=== PATIENT | male | born 1950 | race Caucasian/White ===

== ENCOUNTER 2020-03-16 07:19 | Outpatient (REF) | payer MEDICARE, SELFPAY ==
[2020-03-16 07:58] LABS: MANUAL DIFF FLAG NO
[2020-03-16 07:59] LABS: Basophils Absolute Auto 0.1 X10*3/uL (0.0-0.2); Basophils Percent Auto 0.8 % (0-2); Eosinophils Absolute Auto 0.2 X10*3/uL (0.0-0.4); Eosinophils Percent Auto 3.1 % (0-4); Hematocrit 45.9 % (42-52); Hemoglobin 14.9 g/dl (14.0-18.0); Imm Gran Abs Auto 0.02 X10*3/uL (0.00-0.03); Imm Gran Pct Auto 0.3 % (0.0-0.4); Lymphocytes Absolute Auto 1.5 X10*3/uL (1.2-4.9); Lymphocytes Percent Auto 23.2 % (20-40); Mean Corpuscular HGB Conc 32.5 g/dl (31.0-36.0); Mean Corpuscular Hemoglobin 30.1 pg (27.0-33.0); Mean Corpuscular Volume 92.7 fL (80-98); Mean Platelet Volume 10.2 fL (9.4-12.4); Monocytes Absolute Auto 0.6 X10*3/uL (0.1-1.2); Monocytes Percent Auto 8.4 % (2-11); Neutrophils Absolute Auto 4.2 X10*3/uL (2.0-8.3); Neutrophils Percent Auto 64.2 % (45-73); Platelet Count 240 X10*3/uL (160-400); Red Blood Count 4.95 X10*6/uL (4.60-5.80); Red Cell Distribution Width 12.9 % (11.0-16.0); White Blood Count 6.5 X10*3/uL (4.8-10.8)
[2020-03-16 08:15] LABS: Glucose Urine UA NEG (NEG); Leukocyte Esterase Urine NEG (NEG); Nitrite Urine NEG (NEG); Specific Gravity - Urine >= 1.030 (1.005-1.025); Urine Blood TRACE (NEG); Urine Ketones NEG (NEG); Urine Protein NEG (NEG-TRACE)
[2020-03-16 08:23] LABS: Estimated Average Glucose 111 mg/dL; Hemoglobin A1c % 5.5 %
[2020-03-16 08:23] LABS: Appearance Urine CLEAR; Color Urine YELLOW
[2020-03-16 08:40] LABS: Mucus Urine 1+ /LPF; RBC Urine 0-2 /HPF (0); Squamous Epithelial Cell Urine TRACE /LPF; WBC Urine 0 /HPF (0-4)
[2020-03-16 08:47] LABS: Alanine Aminotransferase 24 U/L (0-40); Albumin Level 4.3 g/dL (3.5-5.0); Alkaline Phosphatase 60 U/L (39-117); Anion Gap 12 (12-20); Aspartate Amino Transferase 16 U/L (5-37); Bilirubin Total 0.5 mg/dL (0.0-1.0); Blood Urea Nitrogen 17 mg/dL (9-16); Calcium 9.2 mg/dL (8.4-10.2); Carbon Dioxide 30 mmol/L (22-29); Chloride 104 mmol/L (96-108); Cholesterol 153 mg/dL; Estimated Glomerular Filt Rate > 60; Glucose Fasting 106 mg/dL (60-99); HDL Cholesterol 46 mg/dL; LDL Cholesterol Calculated 75 mg/dl; Potassium 4.9 mmol/l (3.3-5.1); Sodium 141 mmol/L (135-145); Total Protein 7.3 g/dL (6.5-8.0); Triglycerides 164 mg/dL
[2020-03-16 08:50] LABS: Creatinine Urine 175.64 mg/dL; Microalbum/Creatinine Ratio Ur 7.9 ug/mg cr
[2020-03-16 09:10] LABS: Prostate Specific Antigen 2.01 ng/mL (<0.05-4.0)
[2020-03-16 09:27] LABS: Reflex LDLD? No
== END 2020-03-16 07:20 | disposition home or self-care (01) ==
LOC: HO.LAB 07:19
PROVIDERS: PCP Internal Medicine; Visit Provider Internal Medicine
DX: Z00.00 Encounter for general adult medical examination without abnormal findings (principal); E78.00 Pure hypercholesterolemia, unspecified; R73.09 Other abnormal glucose; I10 Essential (primary) hypertension
CPT/HCPCS: 36415; 80053; 80061; 81001; 81003; 82043; 83036; 84153; 85025

== ENCOUNTER 2020-08-18 10:36 | Outpatient (REF) | payer MEDICARE, SELFPAY ==
[2020-08-18 11:01] LABS: Estimated Average Glucose 108 mg/dL; Hemoglobin A1c % 5.4 %
[2020-08-18 12:25] LABS: Alanine Aminotransferase 26 U/L (0-40); Alkaline Phosphatase 58 U/L (39-117); Aspartate Amino Transferase 20 U/L (5-37); Bilirubin Direct 0.3 mg/dL (0.0-0.5); Bilirubin Total 0.7 mg/dL (0.0-1.0); Cholesterol 126 mg/dL; Glucose Fasting 102 mg/dL (60-99); HDL Cholesterol 39 mg/dL; LDL Cholesterol Calculated 67 mg/dl; Total Protein 6.8 g/dL (6.5-8.0); Triglycerides 103 mg/dL
[2020-08-18 13:23] LABS: Reflex LDLD? No
== END 2020-08-18 10:37 | disposition home or self-care (01) ==
LOC: HO.LNP 10:36
PROVIDERS: Visit Provider Internal Medicine
DX: R73.03 Prediabetes (principal); E78.00 Pure hypercholesterolemia, unspecified
CPT/HCPCS: 80061; 80076; 82947; 83036

== ENCOUNTER 2021-03-29 11:04 | Outpatient (REF) | payer MEDICARE, SELFPAY ==
[2021-03-29 11:07] LABS: MANUAL DIFF FLAG NO
[2021-03-29 11:16] LABS: Basophils Percent Auto 0.3 % (0-2); Eosinophils Absolute Auto 0.2 X10*3/uL (0.0-0.4); Eosinophils Percent Auto 2.8 % (0-4); Hematocrit 45.3 % (42.0-52.0); Hemoglobin 15.1 g/dl (14.0-18.0); Imm Gran Abs Auto 0.02 X10*3/uL (0.00-0.03); Imm Gran Pct Auto 0.3 % (0.0-0.4); Lymphocytes Absolute Auto 1.7 X10*3/uL (1.2-4.9); Mean Corpuscular HGB Conc 33.3 g/dl (31.0-36.0); Mean Corpuscular Hemoglobin 30.7 pg (27.0-33.0); Mean Corpuscular Volume 92.1 fL (80.0-98.0); Mean Platelet Volume 10.8 fL (9.4-12.4); Monocytes Absolute Auto 0.6 X10*3/uL (0.1-1.2); Monocytes Percent Auto 10.1 % (2-11); Neutrophils Absolute Auto 3.6 x10*3/uL (2.0-8.3); Neutrophils Percent Auto 58.5 % (45-73); Platelet Count 251 X10*3/uL (160-400); Red Blood Count 4.92 X10*6/uL (4.60-5.80); Red Cell Distribution Width 12.6 % (11.0-16.0); White Blood Count 6.1 X10*3/uL (4.8-10.8)
[2021-03-29 11:37] LABS: Estimated Average Glucose 108 mg/dL; Hemoglobin A1c % 5.4 %
[2021-03-29 11:43] LABS: Alanine Aminotransferase 24 U/L (0-40); Albumin Level 4.2 g/dL (3.5-5.0); Alkaline Phosphatase 61 U/L (39-117); Anion Gap 11 (12-20); Aspartate Amino Transferase 18 U/L (5-37); Bilirubin Total 0.8 mg/dL (0.0-1.0); Blood Urea Nitrogen 19 mg/dL (9-16); Calcium 9.5 mg/dL (8.4-10.2); Carbon Dioxide 28 mmol/L (22-29); Chloride 106 mmol/L (96-108); Cholesterol 137 mg/dL; Estimated Glomerular Filt Rate > 60; Glucose Fasting 102 mg/dL (60-99); HDL Cholesterol 36 mg/dL; LDL Cholesterol Calculated 82 mg/dl; Potassium 4.2 mmol/L (3.3-5.1); Sodium 141 mmol/L (135-145); Total Protein 7.3 g/dL (6.5-8.0); Triglycerides 98 mg/dL
[2021-03-29 11:45] LABS: Appearance Urine HAZY; Color Urine YELLOW; Glucose Urine UA NEG (NEG); Leukocyte Esterase Urine NEG (NEG); Nitrite Urine NEG (NEG); PH 5.5 (5.0-8.0); Specific Gravity - Urine >= 1.030 (1.005-1.025); Urine Blood NEG (NEG); Urine Ketones NEG (NEG); Urine Protein 1+ MG/DL (NEG-TRACE)
[2021-03-29 11:57] LABS: Mucus Urine 1+ /LPF; RBC Urine 0 /HPF (0); WBC Urine 0 /HPF (0-4)
== END 2021-03-29 11:05 | disposition home or self-care (01) ==
LOC: HO.LNP 11:04
PROVIDERS: Visit Provider Internal Medicine
DX: Z00.00 Encounter for general adult medical examination without abnormal findings (principal); R31.9 Hematuria, unspecified; R73.03 Prediabetes; I10 Essential (primary) hypertension; E78.00 Pure hypercholesterolemia, unspecified
CPT/HCPCS: 80053; 80061; 81001; 82043; 83036; 85025

== ENCOUNTER 2021-04-02 13:54 | Outpatient (REF) | payer MEDICARE, SELFPAY ==
[2021-04-02 14:33] LABS: Prostate Specific Antigen 1.77 ng/mL (<0.05-4.0)
== END 2021-04-02 13:55 | disposition home or self-care (01) ==
LOC: HO.LNP 13:54
PROVIDERS: Visit Provider Internal Medicine
DX: N52.9 Male erectile dysfunction, unspecified (principal); Z12.5 Encounter for screening for malignant neoplasm of prostate
CPT/HCPCS: 84153

== ENCOUNTER 2021-09-27 10:41 | Outpatient (REF) | payer MEDICARE, SELFPAY ==
[2021-09-27 11:51] LABS: Estimated Average Glucose 108 mg/dL; Hemoglobin A1c % 5.4 %
[2021-09-27 11:53] LABS: Alanine Aminotransferase 22 U/L (0-40); Albumin Level 4.3 g/dL (3.5-5.0); Alkaline Phosphatase 59 U/L (39-117); Aspartate Amino Transferase 17 U/L (5-37); Bilirubin Direct 0.2 mg/dL (0.0-0.5); Bilirubin Total 0.3 mg/dL (0.0-1.0); Cholesterol 150 mg/dL; Glucose Fasting 118 mg/dL (60-99); HDL Cholesterol 45 mg/dL; LDL Cholesterol Calculated 74 mg/dl; Total Protein 7.3 g/dL (6.5-8.0); Triglycerides 158 mg/dL
[2021-09-27 13:28] LABS: Reflex LDLD? No
== END 2021-09-27 10:42 | disposition home or self-care (01) ==
LOC: HO.LNP 10:41
PROVIDERS: Visit Provider Internal Medicine
DX: R73.03 Prediabetes (principal); E78.00 Pure hypercholesterolemia, unspecified
CPT/HCPCS: 80061; 80076; 82947; 83036

== ENCOUNTER → 2021-10-08 09:44 | Outpatient (REF) | payer MEDICARE, SELFPAY ==
--- NOTE | 2021-10-08 09:48 | CA_ITS ---
Acquisition Time: 2021-10-08 10:12:21 Total Exercise Time: 00:07:01 Test Indications: Chest Pain Medications: Protocol: RAJENDRA Max HR: 141 BPM 93% of Pred: 151 BPM Max BP: 168/060 mmHG Max Work Load: 8.7 METS Exercise stress test with exercise 7 min 1 sec of Rajendra protocol, achieving 93% MPHR, 8.7 METs, with mild sob, no chest discomfort, with isolated PVCs, with normotensive response to exercise, without EKG changes meeting criteria for ischemia. Test reviewed with Dr Lopez Referred By: Israel Spencer Overread By: BRIAN GODOY
== END ==
LOC: HO.CARD 09:44
PROVIDERS: PCP Internal Medicine; Visit Provider Internal Medicine
DX: R07.89 Other chest pain (principal)
CPT/HCPCS: 93017

== ENCOUNTER 2022-03-31 10:53 | Outpatient (REF) | payer MEDICARE, SELFPAY ==
[2022-03-31 10:57] LABS: MANUAL DIFF FLAG NO
[2022-03-31 11:12] LABS: Basophils Percent Auto 0.7 % (0-2); Eosinophils Absolute Auto 0.2 X10*3/uL (0.0-0.4); Eosinophils Percent Auto 3.1 % (0-4); Hematocrit 42.3 % (42.0-52.0); Imm Gran Abs Auto 0.01 X10*3/uL (0.00-0.03); Imm Gran Pct Auto 0.2 % (0.0-0.4); Lymphocytes Absolute Auto 1.7 X10*3/uL (1.2-4.9); Lymphocytes Percent Auto 27.6 % (20-40); Mean Corpuscular HGB Conc 33.1 g/dl (31.0-36.0); Mean Corpuscular Volume 90.6 fL (80.0-98.0); Mean Platelet Volume 10.8 fL (9.4-12.4); Monocytes Absolute Auto 0.6 X10*3/uL (0.1-1.2); Monocytes Percent Auto 10.5 % (2-11); Neutrophils Absolute Auto 3.6 x10*3/uL (2.0-8.3); Neutrophils Percent Auto 57.9 % (45-73); Platelet Count 240 X10*3/uL (160-400); Red Blood Count 4.67 X10*6/uL (4.60-5.80); White Blood Count 6.1 X10*3/uL (4.8-10.8)
[2022-03-31 11:14] LABS: Appearance Urine Clear; Color Urine Yellow; Glucose Urine UA Negative (Negative); Leukocyte Esterase Urine Negative (Negative); Nitrite Urine Negative (Negative); Specific Gravity - Urine 1.025 (1.005-1.025); Urine Blood Negative (Negative); Urine Ketones Negative (Negative); Urine Protein Negative (Neg-Trace)
[2022-03-31 11:21] LABS: Bacteria Urine None Seen (None Seen); Hyaline Casts Urine 0-2 /LPF (0-2); RBC Urine 0-2 /HPF (0-2); Squamous Epithelial Cell Urine 0-2 /HPF (0-2); WBC Urine 0-5 /HPF (0-5)
[2022-03-31 11:45] LABS: Estimated Average Glucose 108 mg/dL; Hemoglobin A1c % 5.4 %
[2022-03-31 12:25] LABS: Creatinine Urine 202.96 mg/dL; Microalbum/Creatinine Ratio Ur 8.8 ug/mg cr
[2022-03-31 13:07] LABS: Alanine Aminotransferase 25 U/L (0-40); Alkaline Phosphatase 56 U/L (39-117); Anion Gap 11 (12-20); Aspartate Amino Transferase 19 U/L (5-37); Bilirubin Total 0.6 mg/dL (0.0-1.0); Blood Urea Nitrogen 17 mg/dL (9-16); Carbon Dioxide 26 mmol/L (22-29); Chloride 106 mmol/L (96-108); Cholesterol 132 mg/dL; Estimated Glomerular Filt Rate > 60; Glucose Fasting 106 mg/dL (60-99); HDL Cholesterol 42 mg/dL; LDL Cholesterol Calculated 66 mg/dl; Potassium 4.4 mmol/L (3.3-5.1); Sodium 139 mmol/L (135-145); Total Protein 6.8 g/dL (6.5-8.0); Triglycerides 124 mg/dL
[2022-03-31 13:25] LABS: PSA,Total (Free>4and<10) 2.17 ng/mL (0.00-4.00)
== END 2022-03-31 10:54 | disposition home or self-care (01) ==
LOC: HO.LNP 10:53
PROVIDERS: Visit Provider Internal Medicine
DX: Z00.00 Encounter for general adult medical examination without abnormal findings (principal); R73.09 Other abnormal glucose; I10 Essential (primary) hypertension; E78.00 Pure hypercholesterolemia, unspecified; N40.0 Benign prostatic hyperplasia without lower urinary tract symptoms; Z12.5 Encounter for screening for malignant neoplasm of prostate
CPT/HCPCS: 80053; 80061; 81001; 82043; 83036; 84153; 85025

== ENCOUNTER 2022-06-30 12:08 | Outpatient (REF) | payer MEDICARE, SELFPAY ==
[2022-06-30 13:17] LABS: Estimated Average Glucose 108 mg/dL; Hemoglobin A1c % 5.4 %
[2022-06-30 13:46] LABS: Alanine Aminotransferase 40 U/L (0-40); Albumin Level 4.1 g/dL (3.5-5.0); Alkaline Phosphatase 57 U/L (39-117); Aspartate Amino Transferase 24 U/L (5-37); Bilirubin Direct 0.2 mg/dL (0.0-0.5); Bilirubin Total 0.6 mg/dL (0.0-1.0); Cholesterol 161 mg/dL; Glucose Fasting 112 mg/dL (60-99); HDL Cholesterol 46 mg/dL; LDL Cholesterol Calculated 96 mg/dl; Total Protein 6.6 g/dL (6.5-8.0); Triglycerides 99 mg/dL
[2022-06-30 13:55] LABS: Reflex LDLD? No
== END 2022-06-30 12:09 | disposition home or self-care (01) ==
LOC: HO.LNP 12:08
PROVIDERS: Visit Provider Internal Medicine
DX: R73.03 Prediabetes (principal); E78.00 Pure hypercholesterolemia, unspecified
CPT/HCPCS: 80061; 80076; 82947; 83036

== ENCOUNTER 2023-04-04 10:24 | Outpatient (REF) | payer MEDICARE, SELFPAY ==
[2023-04-04 10:31] LABS: MANUAL DIFF FLAG NO
[2023-04-04 10:54] LABS: Appearance Urine Clear; Color Urine Yellow; Glucose Urine UA Negative (Negative); Leukocyte Esterase Urine Negative (Negative); Nitrite Urine Negative (Negative); Specific Gravity - Urine 1.025 (1.005-1.025); Urine Blood Negative (Negative); Urine Ketones Negative (Negative); Urine Protein Negative (Neg-Trace)
[2023-04-04 10:57] LABS: Basophils Percent Auto 0.5 % (0-2); Eosinophils Absolute Auto 0.2 X10*3/uL (0.0-0.4); Eosinophils Percent Auto 2.8 % (0-4); Hematocrit 43.5 % (42.0-52.0); Hemoglobin 14.4 g/dl (14.0-18.0); Imm Gran Abs Auto 0.02 X10*3/uL (0.00-0.03); Imm Gran Pct Auto 0.3 % (0.0-0.4); Lymphocytes Absolute Auto 1.5 X10*3/uL (1.2-4.9); Lymphocytes Percent Auto 23.1 % (20-40); Mean Corpuscular HGB Conc 33.1 g/dl (31.0-36.0); Mean Corpuscular Hemoglobin 30.5 pg (27.0-33.0); Mean Corpuscular Volume 92.2 fL (80.0-98.0); Mean Platelet Volume 10.5 fL (9.4-12.4); Monocytes Absolute Auto 0.5 X10*3/uL (0.1-1.2); Monocytes Percent Auto 8.4 % (2-11); Neutrophils Absolute Auto 4.2 x10*3/uL (2.0-8.3); Neutrophils Percent Auto 64.9 % (45-73); Platelet Count 242 X10*3/uL (160-400); Red Blood Count 4.72 X10*6/uL (4.60-5.80); Red Cell Distribution Width 12.8 % (11.0-16.0); White Blood Count 6.4 X10*3/uL (4.8-10.8)
[2023-04-04 11:01] LABS: Bacteria Urine None Seen (None Seen); Hyaline Casts Urine 0-2 /LPF (0-2); RBC Urine 0-2 /HPF (0-2); Squamous Epithelial Cell Urine 0-2 /HPF (0-2); WBC Urine 0-5 /HPF (0-5)
[2023-04-04 11:07] LABS: Creatinine Urine 200.13 mg/dL; Estimated Average Glucose 108 mg/dL; Hemoglobin A1c % 5.4 % (<6.0); Microalbum/Creatinine Ratio Ur 13.4 ug/mg cr (<30)
[2023-04-04 11:15] LABS: Cholesterol 147 mg/dL (<200); HDL Cholesterol 48 mg/dL (>40); LDL Cholesterol Calculated 73 mg/dL (<100); Triglycerides 130 mg/dL (<150)
[2023-04-04 11:36] LABS: Prostate Specific Antigen 2.18 ng/mL (<0.05-4.0)
== END 2023-04-04 10:25 | disposition home or self-care (01) ==
LOC: HO.LNP 10:24
PROVIDERS: Visit Provider Internal Medicine
DX: Z00.00 Encounter for general adult medical examination without abnormal findings (principal); Z12.5 Encounter for screening for malignant neoplasm of prostate; R73.03 Prediabetes; I10 Essential (primary) hypertension; N40.0 Benign prostatic hyperplasia without lower urinary tract symptoms; E78.00 Pure hypercholesterolemia, unspecified
CPT/HCPCS: 80061; 81001; 82043; 82570; 83036; 84153; 85025

== ENCOUNTER 2023-10-02 11:17 | Outpatient (REF) | payer MEDICARE, SELFPAY ==
[2023-10-02 11:48] LABS: Estimated Average Glucose 105 mg/dL; Hemoglobin A1c % 5.3 % (<6.0)
[2023-10-02 11:52] LABS: Alanine Aminotransferase 21 U/L (0-40); Albumin Level 3.9 g/dL (3.5-5.0); Alkaline Phosphatase 55 U/L (39-117); Aspartate Amino Transferase 17 U/L (5-37); Bilirubin Direct 0.2 mg/dL (0.0-0.5); Bilirubin Total 0.4 mg/dL (0.0-1.0); Cholesterol 136 mg/dL (<200); Glucose Fasting 103 mg/dL (60-99); HDL Cholesterol 39 mg/dL (>40); LDL Cholesterol Calculated 66 mg/dL (<100); Triglycerides 157 mg/dL (<150)
[2023-10-02 12:37] LABS: Reflex LDLD? No
== END 2023-10-02 11:18 | disposition home or self-care (01) ==
LOC: HO.LNP 11:17
PROVIDERS: Visit Provider Internal Medicine
DX: R73.09 Other abnormal glucose (principal); E78.00 Pure hypercholesterolemia, unspecified
CPT/HCPCS: 80061; 80076; 82947; 83036

== ENCOUNTER 2024-04-05 07:45 | Outpatient (REF) | payer MEDICARE, SELFPAY ==
[2024-04-05 11:28] LABS: MANUAL DIFF FLAG NO
[2024-04-05 11:36] LABS: Appearance Urine Clear; Basophils Percent Auto 0.5 % (0-2); Color Urine Dark Yellow; Eosinophils Absolute Auto 0.3 X10*3/uL (0.0-0.4); Eosinophils Percent Auto 5.6 % (0-4); Glucose Urine UA Negative (Negative); Hematocrit 44.6 % (42.0-52.0); Hemoglobin 14.9 g/dl (14.0-18.0); Imm Gran Abs Auto 0.02 X10*3/uL (0.00-0.03); Imm Gran Pct Auto 0.3 % (0.0-0.4); Leukocyte Esterase Urine Negative (Negative); Lymphocytes Absolute Auto 1.3 X10*3/uL (1.2-4.9); Lymphocytes Percent Auto 22.6 % (20-40); Mean Corpuscular HGB Conc 33.4 g/dl (31.0-36.0); Mean Corpuscular Hemoglobin 30.5 pg (27.0-33.0); Mean Corpuscular Volume 91.2 fL (80.0-98.0); Mean Platelet Volume 10.9 fL (9.4-12.4); Monocytes Absolute Auto 0.5 X10*3/uL (0.1-1.2); Monocytes Percent Auto 8.5 % (2-11); Neutrophils Absolute Auto 3.6 x10*3/uL (2.0-8.3); Neutrophils Percent Auto 62.5 % (45-73); Nitrite Urine Negative (Negative); PH 5.5 (5.0-9.0); Platelet Count 255 X10*3/uL (160-400); Red Blood Count 4.89 X10*6/uL (4.60-5.80); Red Cell Distribution Width 12.9 % (11.0-16.0); Specific Gravity - Urine 1.025 (1.005-1.025); UMIC TRIGGER UACC YES; Urine Blood Negative (Negative); Urine Ketones Negative (Negative); Urine Protein 30 (1+) mg/dL (Neg-Trace); White Blood Count 5.7 X10*3/uL (4.8-10.8)
[2024-04-05 11:43] LABS: Estimated Average Glucose 111 mg/dL; Hemoglobin A1C 139.4965 umol/L; Hemoglobin A1c % 5.5 % (<6.0); Total Hemoglobin (HGBA1C) 3791.7701 umol/L
[2024-04-05 11:53] LABS: Bacteria Urine None Seen (None Seen); Granular Casts Urine Present; Hyaline Casts Urine >20 /LPF (0-2); RBC Urine 0-2 /HPF (0-2); Squamous Epithelial Cell Urine 0-2 /HPF (0-2); WBC Urine 0-5 /HPF (0-5)
[2024-04-05 11:57] LABS: Alanine Aminotransferase 36 U/L (0-40); Albumin Level 3.9 g/dL (3.5-5.0); Alkaline Phosphatase 58 U/L (39-117); Anion Gap 11 (12-20); Aspartate Amino Transferase 32 U/L (5-37); Bilirubin Total 0.7 mg/dL (0.0-1.0); Blood Urea Nitrogen 14 mg/dL (9-16); Calcium 8.8 mg/dL (8.4-10.2); Carbon Dioxide 28 mmol/L (22-29); Chloride 106 mmol/L (96-108); Cholesterol 132 mg/dL (<200); Estimated Glomerular Filt Rate > 60; Glucose Fasting 100 mg/dL (60-99); HDL Cholesterol 32 mg/dL (>40); LDL Cholesterol Calculated 63 mg/dL (<100); Potassium 3.8 mmol/L (3.3-5.1); Sodium 141 mmol/L (135-145); Total Protein 7.6 g/dL (6.5-8.0); Triglycerides 186 mg/dL (<150)
[2024-04-05 12:04] LABS: PSA,Total (Free>4and<10) 2.88 ng/mL (0.00-4.00)
[2024-04-05 12:19] LABS: Creatinine Urine 315.12 mg/dL
== END 2024-04-05 07:46 | disposition home or self-care (01) ==
LOC: HO.LNP 07:45
PROVIDERS: Visit Provider Internal Medicine
DX: Z00.00 Encounter for general adult medical examination without abnormal findings (principal); R73.09 Other abnormal glucose; I10 Essential (primary) hypertension; E78.00 Pure hypercholesterolemia, unspecified; Z12.5 Encounter for screening for malignant neoplasm of prostate; N40.0 Benign prostatic hyperplasia without lower urinary tract symptoms
CPT/HCPCS: 80053; 80061; 81001; 82043; 82570; 83036; 84153; 85025

== ENCOUNTER 2024-08-02 08:57 | Outpatient (AMB) | payer MEDICARE, SELFPAY ==
--- NOTE | 2024-08-02 09:09 | MHC.OFFVIS ---
Vital Signs 08/02/24 09:28 Height 5 ft 10 in Weight 220 lb BMI 31.6 BP 146/70 H Blood Pressure Location Rt brachial Position Sitting Pulse 64 Pulse Source Pulse Oximeter Pulse Oximetry (%) 97 Oxygen Delivery Method Room Air Intake Visit Reasons: colo screening stool guaiac positive Intake Note: NEW PATIENT for colo screening after a + stool test. CC; Pt denies any GI sx or concerns at this time. Dr. Spencer was performing routine testing and happen to catch this incidentally. Pt due for recall in 2 years according to last colo in 2016. Blending Line Attendant Required: No Accompanied by: Self / Same As Patient Allergies Penicillins Allergy (Unknown, Verified 08/02/24 09:17) Rash lisinopril Adverse Reaction (Mild, Verified 08/02/24 09:17) Cough HPI HPI colo screening stool guaiac positive: Details: 74 year old? male with past medical history of hypertension, ISAIAH, hyperlipidemia is here today for pre colonoscopy screening.? Patient was sent to us by his PCP.? Last colonoscopy in 2016.? Patient had positive Hemoccult. Patient denies any gastrointestinal symptoms in the past or at present.? Denies any personal or family history of gastrointestinal disease or CRC.? Denies history of difficulty with sedation or anesthesia in the past.? History of sleep apnea uses CPAP every night.? Denies any history of cardiac, renal, pulmonary, or hepatic disease.?? No history of infectious? diseases like hepatitis A, B, C, HIV or tuberculosis.? Patient is not on any anticoagulation PFSH Medical History Hematuria Lumbar disc disorder Prostatism ISAIAH (obstructive sleep apnea) HLD (hyperlipidemia) HTN (hypertension) Erectile dysfunction Surgical History History of knee replacement History of hip replacement Hx of cystoscopy Hx of colonoscopy Social History (Updated 08/02/24 @ 09:25 by SITA Rocha) Alcohol intake: current Comment: 2/day Patient Tobacco Use Status: Never used Tobacco Use of substances other than those prescribed or required for medical reasons: No Physical Exam Vital Signs: Last Vital Signs Pulse 64 08/02/24 09:28 BP 146/70 H 05/16/25 09:28 Pulse Ox 97 08/02/24 09:28 Oxygen Delivery Method Room Air 08/02/24 09:28 BMI result Body Mass Index 31.6 Assessment & Plan Assessment & Plan (1) Screen for colon cancer: Code(s): Z12.11 - Encounter for screening for malignant neoplasm of colon Plan Patient denies any GI, cardiac or respiratory symptoms.? Denies any issues with anesthesia in the past.? Denies any history of sleep apnea.? No history infectious diseases in the past or present.? Not on any anticoagulation therapy.? No family or personal history of colon cancer or polyps.? Patient denies melena, hematochezia, unintentional weight loss or ribbon like stools.? Discussed at length the pre-procedure,? prep, diet & medications as well as what to expect prior, during and after the procedure.?? Stressed the importance of good bowel prep.? Recommended the use of Vaseline or Calmoseptine OTC & baby wipes with bowel movements to promote comfort.? ?Patient verbalizes understanding and agrees to plan of care.? He was given the opportunity to ask questions and all questions answered.? We will see him after the procedure.? Medications: New polyethylene glycol 3350 (Miralax) As directed by gastroenterology department at [facility] 238 grams PO ONCE 238 grams 0RF Z12.11 - Encounter for screening for malignant neoplasm of colon bisacodyl (Dulcolax (bisacodyl)) take 4 tabs at noon the day before your colonoscopy 20 mg (4 x 5 mg) PO ONCE 4 tabs 0RF 1 day Z12.11 - Encounter for screening for malignant neoplasm of colon Coding Level of Care Code New Pt Level 3 (93388) Diagnoses Screen for colon cancer Z12.11 Time Spent (min) 40 Comment 30 minutes spent with patient and additional 10 minutes spent reviewing his records
--- OUTSIDE RECORDS SUMMARY | 2024-08-02 09:09 | XMS_ITS | Patient Health Record ---
Author Organization Israel Spencer MD Address [address] [place] [phone] Care Team Providers Care Trestle Builder Name Role Phone Israel Spencer Primary Care Provider Allergies Allergen (clinical drug ingredient) Drug/Non Drug Allergy documented on EMR Reaction Allergy Type Onset Date Status lisinopril lisinopril (uncoded) cough Allergy Active penicillin (uncoded) rash Allergy Active Results Component Value Reference Range Notes Liver Panel Reviewed date:10/02/2023 05:57:29 PM Interpretation: Performing Lab:[facility], [address] [place] [phone] Notes/Report: Bilirubin Total 0.4 0.0-1.0 mg/dL Bilirubin Direct 0.2 0.0-0.5 mg/dL Aspartate Amino Transferase 17 5-37 U/L Alanine Aminotransferase 21 0-40 U/L Total Protein 7.0 6.5-8.0 g/dL Albumin Level 3.9 3.5-5.0 g/dL Alkaline Phosphatase 55 39-117 U/L Glucose Fasting Reviewed date:10/02/2023 02:07:27 PM Interpretation: Performing Lab:[facility], [address] [place] [phone] Notes/Report: Glucose Fasting 103 60-99 mg/dL A fasting glucose from 100-125 mg/dl is considered impaired (pre-diabetes). Lipid Panel with Reflex Reviewed date:10/02/2023 02:07:19 PM Interpretation: Performing Lab:[facility], [address] [place] [phone] Notes/Report: Triglycerides 157 <150 mg/dL Desirable Triglyceride: less than 150 mg/dL Borderline High Triglyceride 150-199 mg/dL High Triglyceride: 200-499 mg/dL Very High Triglyceride: greater than or equal to 5OO mg/dL Cholesterol 136 <200 mg/dL Desirable Cholesterol: less than 200 mg/dL Borderline High Cholesterol: 200-239 mg/dL High Cholesterol: greater than 239 mg/dL LDL Cholesterol Calculated 66 <100 mg/dL Desirable LDL: less than 100 mg/dL Near Optimal/Above Optimal LDL: 110-129 mg/dL Borderline High LDL: 130-159 mg/dL High LDL: 160-189 mg/dL Very High LDL: greater than or equal to 190 mg/dL HDL Cholesterol 39 >40 mg/dL Desirable HDL: greater than 40 mg/dL Note: This HDL assay may give artificially low results in patients with liver disease. Hemoglobin A1c Reviewed date:10/02/2023 12:37:32 PM Interpretation: Performing Lab:[facility], [address] [place] [phone] Notes/Report: Hemoglobin A1c % 5.3 <6.0 % Hemoglobin A1C Reference Range Adults: 4.8 - 6.0 % Non diabetic: < 6.0 % Goal: < 7.0 % Additional Action Suggested: > 8.0 % Note: Hemoglobin A1c results are invalid for patients with abnormal amounts of HbF. Blood transfusions may impact the HbA1c concentration in the patient sample. Estimated Average Glucose 105 eAG = Estimated average glucose which is %A1C expressed as average glucose, using the formula of the B9B-Opabljo Average Glucose study (ADAG), Diabetes Care, Vol.31,#8, 2007 Complete Blood Count Auto Di ff Reviewed date:04/05/2024 12:33:38 PM Interpretation: Performing Lab:[facility], [address] [place] [phone] Notes/Report: White Blood Count 5.7 4.8-10.8 X10*3/uL [...] NRBC Abs Auto 0.000 0.0-0.012 X10*3/uL Comprehensive [place]. Panel Fa st Reviewed date:04/05/2024 12:33:22 PM Interpretation: Performing Lab:[facility], [address] [place] [phone] Notes/Report: Sodium 141 135-145 mmol/L Potassium 3.8 [...] Panel Reviewed date:04/05/2024 12:16:28 PM Interpretation: Performing Lab:[address] [phone] Notes/Report: Triglycerides 186 <150 mg/dL Desirable Triglyceride: [...] (Free>4and<10) Reviewed date:04/05/2024 12:24:29 PM Interpretation: Performing Lab:[address] [phone] Notes/Report: PSA,Total (Free>4and<10) 2.88 0.00-4.00 ng/mL A [...] Random Reviewed date:04/05/2024 12:29:37 PM Interpretation: Performing Lab:[address] [phone] Notes/Report: Creatinine Urine 315.12 Microalbumin Urine 120.0 Microalbum/Creatinine Ratio Ur 38.0 <30 ug/mg cr Albumin/Creatinine Ratio Reference Ranges: Normal: < 30 ug/mg creatinine Microalbuminuria: 30 - 300 ug/mg creatinine Clinical Albuminuria: > 300 ug/mg creatinine Hemoglobin A1c Reviewed date:04/05/2024 12:24:46 PM Interpretation: Performing Lab:[address] [phone] Notes/Report: Hemoglobin A1c % 5.5 <6.0 % [...] average glucose, using the formula of the D4A-Kxwemib Average Glucose study (ADAG), Diabetes Care, Vol.31,#8, Oct. 2007 UA ClnCatch+Micro w/rflx Cul t Reviewed date:04/05/2024 12:33:59 PM Interpretation: Performing Lab:[address] [phone] Notes/Report: [id number] Urine, Clean Catch Color Urine Dark Yellow Appearance Urine Clear PH 5.5 5.0-9.0 Glucose Urine UA Negative Negative mg/dL Urine Blood Negative Negative Specific [place] - Urine 1.025 1.005-1.025 Urine Protein 30 (1+) Neg-Trace mg/dL Urine Ketones Negative Negative mg/dL Nitrite Urine Negative Negative Leukocyte Esterase Urine Negative Negative RBC Urine 0-2 0-2 /HPF WBC Urine 0-5 0-5 /HPF Squamous Epithelial Cell Urine 0-2 0-2 /HPF Bacteria Urine None Seen None Seen Hyaline Casts Urine >20 0-2 /LPF Granular Casts Urine Present Occult Blood, Stool, Guaiac Reviewed date:04/12/2024 10:54:38 AM Interpretation:Positive Performing Lab: Notes/Report: Positive Occult Blood, Stool, Guaiac Pos Hold Gold Reviewed date:10/02/2023 05:57:50 PM Interpretation: Performing Lab:[facility], [address] [place] [phone] Notes/Report: Bob Gold See Note Specimen held untested for 24 hours; Call to request Chemistry testing. Reason For Referral Reason stool guaiac positiv e needs an colonoscopy Diagnosis 1 Stool guaiac positiv e (R19.5) Referral Organization Israel Spencer MD Referring Provider First Name Israel Referring Provider Last Name Tj Referring Provider Speciality Internal M edicine Referred Provider Kenia Ellis Referred Provider Specialty Gastroentero logy General Notes Pamela Miller 0 04/19/2024 12:06:39 PM >info faxed, Pamela Miller 05/07/2024 11:17:35 AM >referral info mailed to patient Referral Priority Routine Referral Appointment Date 08/02/2024 Medications Medication SIG (Take, Route, Frequency, Duration) Notes Start Date End Date Status Valsartan-hydroCHLOROthiaz natty 320-12.5 MG TAKE 1 TABLET BY MOUTH EVERY DAY for 90 Active Tadalafil 20 MG TAKE ONE TABLET BY MOUTH ONCE DAILY for 30 Active Betamethasone Dipropionate Aug 0.05 % APPLY EVERY DAY DIRECTED Externally Once a day for 10 Not-Taking Atorvastatin Calcium 40 MG TAKE 1 TABLET BY MOUTH EVERY DAY Active amLODIPine Besylate 5 MG TAKE 1 TABLET B Y MOUTH EVERY DAY Active Meloxicam 15 MG 1 tablet Orally Once a day for 30 day(s) Not-Taking Immunizations Vaccine Route Administration Date Status Comme nts Flu Vaccine Unknown 03/29/2012 Administered Flu Vaccine IM Intramuscular 05/16/2013 Administered TDaP IM Intramuscular 10/21/2013 Administered Fluarix Quadrivalent IM Intramuscular 12/24/2013 Administe red zFluzone Quadrivalent IM Intramuscular 01/27/2015 Administ ered Fluarix Quadrivalent IM Intramuscular 02/09/2016 Administe red Fluarix Quadrivalent IM Intramuscular 01/03/2017 Administe red Shingles IM Intramuscular 01/03/2017 Administered Prevnar 13 IM Intramuscular 08/22/2017 Administered Fluarix Quadrivalent IM Intramuscular 02/19/2018 Administe red Fluarix Quadrivalent IM Intramuscular 03/04/2019 Administe red Influenza High Dose Unknown 01/15/[address] [facility] Covid Vaccine Unknown 05/08/2020 Administered Pfizer Covid Vaccine Unknown 06/01/2020 Administered Pfizer Influenza High Dose IM Intramuscular 02/08/2021 Administer ed SARS-COV-2 Pfizer Unknown 12/17/2020 Administered SARS-COV-2 Pfizer Unknown 12/17/2020 Administered SARS-COV-2 Pfizer Unknown 06/25/2021 Administered Influenza High Dose IM Intramuscular 02/17/2022 Administer ed Influenza High Dose IM Intramuscular 12/09/2022 Administer ed Influenza High Dose IM Intramuscular 11/30/2023 Administer ed PPSV23 (Pnemovax) Unknown 08/27/2018 Refused Social History Tobacco Use: Social History Observation Description Date Details (start date - stop date) Never Smoker NA - NA Tobacco Use/Smoking Question Answer Notes Patient is a nonsmoker Additional Findings: Tobacco Non-User Cu rrent non-smoker, currently using no form of tobacco Alcohol Screen Question Answer Notes Did you have a drink contain ing alcohol in the past year? Yes How often did you have a dri nk containing alcohol in the past year? 4 or more times a week (4 points) How many drinks did you have on a typical day when you were drinking in the past year? 1 or 2 drinks (0 point) How often did you have 6 or more drinks on one occasion in the past year? 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 confirmed Problem 958752286 Pure hypercholesterolemia (E78.00) Active confirmed Problem ISAIAH (obstructive sleep apnea) (G47.33) Active confirmed Problem 37386522 Hip arthritis (M16.10) Active confirme d Problem 404430736 BMI 31.0-31.9,ad ult (Z68.31) Active confirmed Vital Signs Blood pressure diastolic 76 mm Hg 04/12/2024 katar[place] ght is down 13 pounds since 10-12-23 Height 70 in 04/12/2024 weight is down 13 pounds since 10-12-23 Blood pressure systolic 132 mm Hg 04/12/2024 weig ht is down 13 pounds since 10-12-23 Weight 220 lbs 04/12/2024 weight is down 13 pounds since 10-12-23 BMI 31.56 kg/m2 04/12/2024 weight is down 13 pounds since 10-12-23 Encounters Encounter Location Date Provider Diagnosis Israel Spencer MD [address] [place] [id number] 10/02/2023 Israel Spencer Prediabetes R73.09 a nd Pure hypercholesterolemia E78.00 Israel Spencer MD [address] [place] [id number] 11/30/2023 Israel Spencer Encounter for immuni zation Z23 Israel Spencer MD [address] [place] [id number] 04/05/2024 Israel Spencer Blood tests for rout ine general physical examination Z00.00 ; Prediabetes R73.09 ; Essential hypertension I10 ; Pure hypercholesterolemia E78.00 and Prostatism N40.0 Israel Spencer MD [address] [place] [id number] 10/12/2023 Israel Spencer Prediabetes R73.09 ; Pure hypercholesterolemia E78.00 and Essential hypertension I10 Israel Spencer MD [address] [place], [place] [id number] 04/12/2024 Israel Spencer Stool guaiac positiv e R19.5 ; Annual physical exam Z00.00 ; Essential hypertension I10 ; Prediabetes R73.09 ; Pure hypercholesterolemia E78.00 ; Prostatism N40.0 ; Depression screening Z13.31 and Screening for colon cancer Z12.11 Assessments Encounter Date Diagnosis (ICD Code) Assessment Notes Treatment Notes Treatment Clinical Notes Section Notes 10/02/2023 Prediabetes (ICD-10 - R73.09) 10/02/2023 Pure hypercholesterolemia (ICD-10 - E78.00) 11/30/2023 Encounter for immunization (ICD-10 - Z23) 04/05/[address] ine general physical examination (ICD-10 - Z00.00) 04/05/2024 Prediabetes (ICD-10 - R73.09) 10/12/2023 Prediabetes (ICD-10 - R73.09) still doing well needs to lose weight, will continue to monitor, no need for medication at this time 10/12/2023 Pure hypercholesterolemia (ICD-10 - E78.00) doing well on meds, will contiue current regiment 04/12/2024 Stool guaiac positiv e (ICD-10 - R19.5) referral to dr ellis 04/12/2024 Annual physical exam (ICD-10 - Z00.00) labs reviewed and discussed with patient 04/05/2024 Essential hypertensi on (ICD-10 - I10) 10/12/2023 Essential hypertensi on (ICD-10 - I10) stable, will contibue current regiment 04/12/2024 Essential hypertensi on (ICD-10 - I10) doing well, will contionue current regiment 04/05/2024 Pure hypercholesterolemia (ICD-10 - E78.00) 04/12/2024 Prediabetes (ICD-10 - R73.09) doing well with weight loss, no need for medication at this time 04/05/2024 Prostatism (ICD-10 - N40.0) 04/12/2024 Pure hypercholesterolemia (ICD-10 - E78.00) stable, will continue current regiment 04/12/2024 Prostatism (ICD-10 - N40.0) slight increase , will continue to monitor 04/12/2024 Depression screening (ICD-10 - Z13.31) negative screen 04/12/2024 Screening for colon cancer (ICD-10 - Z12.11) guaiac positive, referral to GI Plan Of Treatment Pending Test Test Name Order Date Stress Test 10/01/2021 Next Appt Details Provider Name:Israelsusi Lance ier, 10/04/2024 07:30:00 AM, [address] [place] [address], [address] [place] [address], [phone], Provider Name:Israel Lance ier, 10/11/2024 09:00:00 AM, [address] [place] [address], [address], [phone], Provider Name:Israel Lance ier, 04/10/2025 08:00:00 AM, [address] [place] [address], [address], [phone], Provider Name:Israelsusi Lance ier, 04/17/2025 08:30:00 AM, [address] [place] [address], [address], [phone], Insurance Providers Payer Name Payer Address Payer Phone Subscriber Number Group Number Insured Name Patient Relationship to Insured Coverage Start Date Coverage End Date [employer] [address] [place], [place] [id number] Jarocho Tran Self - patient is the insured MEDICARE NHIC [address] [place] [address] [id number] Jarocho Tran Self - patient is the insured Medical (General) History Medical History History ICD Code HISTORY OF HEMATURIA cysto and eval 2012 COLONOSCOPY 2OO2 DUE 2011 done 2017 hype rplastic polyp due in 10 years Colonoscopy done 12/14/11 - r epeat in 11/2016; colonoscopy done 04/27/16 - repeat 10 years Surgical History Surgery Date(Month/Year) Total RT Hip Relacement (Dr. Valentino storey) 08/2019
--- OUTSIDE RECORDS SUMMARY | 2024-08-02 09:09 | XMS_ITS ---
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 Name Role Phone Israel Spencer Primary Care Provider Allergies Allergen (clinical drug ingredient) Drug/Non Drug Allergy documented on EMR Reaction Allergy Type Onset Date Status lisinopril lisinopril (uncoded) cough Allergy Active penicillin (uncoded) rash Allergy Active Results Component Value Reference Range Notes Occult Blood, Stool, Guaiac Reviewed date:04/12/2024 10:54:38 AM Interpretation:Positive Performing Lab: Notes/Report: Positive Occult Blood, Stool, Guaiac Pos Reason For Referral Reason stool guaiac positiv e needs an colonoscopy Diagnosis 1 Stool guaiac positiv e (R19.5) Referral Organization Israel Spencer MD Referring Provider First Name Israel Referring Provider Last Name Tj Referring Provider Speciality Internal M edicine Referred Provider Kenia Ellis Referred Provider Specialty Gastroentero logy General Notes Paul Pamela 0 04/19/2024 12:06:39 PM >info faxed, Pamela Miller 05/07/2024 11:17:35 AM >referral info mailed to patient Referral Priority Routine Referral Appointment Date 08/02/2024 REASON FOR VISIT annual visit Medications Medication SIG (Take, Route, Frequency, Duration) Notes Start Date End Date Status Valsartan-hydroCHLOROthiaz natty 320-12.5 MG TAKE 1 TABLET BY MOUTH EVERY DAY Active Tadalafil 20 MG TAKE ONE TABLET BY MOUTH ONCE DAILY for 30 Active Betamethasone Dipropionate Aug 0.05 % APPLY EVERY DAY DIRECTED Externally Once a day for 10 Not-Taking Atorvastatin Calcium 40 MG TAKE 1 TABLET BY MOUTH EVERY DAY Active Meloxicam 15 MG 1 tablet Orally Once a day for 30 day(s) Not-Taking amLODIPine Besylate 5 MG TAKE 1 TABLET B Y MOUTH EVERY DAY Active Social History Tobacco Use: Social History Observation [...] Never (0 point) Points 4 Interpretation Positive Vital Signs Blood pressure systolic 132 mm Hg 04/12/19 25 Blood pressure diastolic 76 mm Hg 025 Height 70 in 04/12/2024 Weight 220 lbs 04/12/2024 BMI 31.56 kg/m2 04/12/2024 weight is down 13 pounds sin 10-12-23 Encounters Encounter Location Date Provider Diagnosis Israel Spencer MD [address] [place] [address] [address] [place], [place] [phone] 04/12/2024 Israel Spencer Stool guaiac positiv e R19.5 ; Annual physical exam Z00.00 ; Essential hypertension I10 ; Prediabetes R73.09 ; Pure hypercholesterolemia E78.00 ; Prostatism N40.0 ; Depression screening Z13.31 and Screening for colon cancer Z12.11 Assessments Encounter Date Diagnosis (ICD Code) Assessment Notes Treatment Notes Treatment Clinical Notes Section Notes 04/12/2024 Stool guaiac positiv e (ICD-10 - R19.5) referral to dr ellis 04/12/2024 Annual physical exam (ICD-10 - Z00.00) labs reviewed and discussed with patient 04/12/2024 Essential hypertensi on (ICD-10 - I10) doing well, will contionue current regiment 04/12/2024 Prediabetes (ICD-10 - R73.09) doing well with weight loss, no need for medication at this time 04/12/2024 Pure hypercholesterolemia (ICD-10 - E78.00) stable, will continue current regiment 04/12/2024 Prostatism (ICD-10 - N40.0) slight increase , will continue to monitor 04/12/2024 Depression screening (ICD-10 - Z13.31) negative screen 04/12/2024 Screening for colon cancer (ICD-10 - Z12.11) guaiac positive, referral to GI Plan Of Treatment Medication Medication Name Sig Start Date Stop Date Notes Valsartan-hydroCHLOROthiazid e 320-12.5 MG TAKE 1 TABLET BY MOUTH EVERY DAY Atorvastatin Calcium 40 MG TAKE 1 TABLET BY MOUTH EVERY DAY amLODIPine Besylate 5 MG TAKE 1 TABLET B Y MOUTH EVERY DAY Treatment Notes Assessment Notes Stool guaiac positive referral to dr ellis Annual physical exam labs reviewed and d iscussed with patient Essential hypertension doing well, will contionue current regiment Prediabetes doing well with weig ht loss, no need for medication at this time Pure hypercholesterolemia stable, will c ontinue current regiment Prostatism slight increase , wi ll continue to monitor Depression screening negative screen Screening for colon cancer guaiac positi ve, referral to GI Referrals Referral Date Details 04/12/2024 04/12/2024, stool gu aiac positive needs an colonoscopy, Kenia Ellis Next Appt Details Follow Up: 6 Months, Reason: Provider Name:Israel quezada, 10/04/2024 07:30:00 AM, [address], [address], [facility] [place], [phone], Provider Name:Israel Lance ier, 10/11/2024 09:00:00 AM, [address], [address], [place], [phone], Provider Name:Israel Lance ier, 04/10/2025 08:00:00 AM, [facility], [address], [place], [phone], Provider Name:Israel Lance ier, 04/17/2025 08:30:00 AM, [facility], [address], [place], [phone], Progress Notes * Jarocho TRAN PDOB:1950 (74 yo M)Acc No.[id number]:04/12/2024 Progress Notes Patient:?Jarocho TRAN P Provider:?Israel Spencer MD :1950???Age:74 Y???Sex:Male Ko e:04/12/2024 Address:[address] [place] [address] Subjective: * Chief Complaints: * ???Annual visit * HPI: ???Depression Screening:?PHQ-9?Little interest or pleasure in doing things?Not at all,?Feeling down, depressed, or hopeless?Not at all,?Trouble falling or staying asleep, or sleeping too much?Not at all,?Feeling tired or having little energy?Not at all,?Poor appetite or overeating?Not at all,?Feeling bad about yourself or that you are a failure, or have let yourself or your family down?Not at all,?Trouble concentrating on things, such as reading the newspaper or watching television?Not at all,?Moving or speaking so slowly that other people could have noticed; or the opposite, being so fidgety or restless that you have been moving around a lot more than usual?Not at all,?Thoughts that you would be better off or of hurting yourself in some way?Not at all,?Total Score?0.?Interpretation and Intervention?Depression Screening Findings?Negative,?Follow-Up for Depression?: review of PHQ-9 found negative result, no follow-up needed.?Communication Needs:?Communication Needs?Does the patient have a hearing impairment?No,?Does the patient have a vision impairment??Yes,?If yes, what is the vision impairment??Glasses,?Does the patient have a cognition impairment??No.?Fall Risk:?History?Have you had any falls with injury in the past year??Yes while out for a wlak tripped and landed on right elbow, went to Urgent Care no fracture,?Have you had two or more falls in the past year??No.?SDOH Questions:?SDOH Questions?In the past year have you been worried about losing housing??No,?In the past year have you or any family members you live with been unable to get any of the following when it was really needed? Check all that apply:?None.?Symptom(s):? patient is a 74 yo male here for annual visit with review of recent labs and follow up of chronic issues. * ROS:?General/Constitutional:?Patient denies?fatigue, headache.?Change in appetite?denies.?Chills?denies.?Fever?denies.?Ophthalmologic:?Blurred vision?denies.?Discharge?denies.?Pain?denies.?ENT:?Patient denies?decreased sense of smell, any loss of taste, sore throat.?Decreased hearing?denies.?Sore throat?denies.?Swollen glands?denies.?Endocrine:?Cold intolerance?denies.?Excessive thirst?denies.?Heat intolerance?denies.?Weight loss?denies.?Respiratory:?Cough?denies.?Shortness of breath at rest?denies.?Shortness of breath with exertion?denies.?Wheezing?denies.?Cardiovascular:?Chest pain at rest?denies.?Chest pain with exertion?denies.?Irregular heartbeat?denies.?Shortness of breath?denies.?Gastrointestinal:?Abdominal pain?denies.?Change in bowel habits?denies.?Diarrhea?denies.?Nausea?denies.?Rectal bleeding?denies.?Vomiting?denies .?Genitourinary:?Blood in urine?denies.?Difficulty urinating?denies.?Frequent urination?denies.?Musculoskeletal:?Patient denies?muscle aches.?Painful joints?denies.?Weakness?denies.?Peripheral Vascular:?Patient denies?red and blue toes.?Skin:?Dry skin?denies.?Itching?denies.?Denies?Mole(s),? changes in moles, new moles or any lesions of concern.?Denies?Photosensitivity.?Rash?denies.?Neurologic:?Dizziness?denies.?Fainting?denies.?Headache?denies.? * Medical History:? * Surgical History:? * Hospitalization/Major Diagno stic Procedure:? * Family History:?Father: dece ased 56 yrs, diagnosed with Cancer.?Mother: 73 yrs.?2 brother(s) , 2 sister(s) . 1 son(s) , 1 daughter(s) . .? Mother-Renal Failure 2 half sisters 1 brother COPD, Denies mental health/substance abuse family history, Denies mental health/substance abuse family history, No pertinent family medical history, No pertinent family medical history. * Social History:?Tobacco Use:?Tobacco Use/Smoking?Patient is a?nonsmoker,?Additional Findings: Tobacco Non-User?Current non-smoker, currently using no form of tobacco.?Drugs/Alcohol:?Alcohol Screen?Did you have a drink containing alcohol in the past year??Yes,?How often did you have a drink containing alcohol in the past year??4 or more times a week (4 points),?How many drinks did you have on a typical day when you were drinking in the past year??1 or 2 drinks (0 point),?How often did you have 6 or more drinks on one occasion in the past year??Never (0 point),?Points?4,?Interpretation?Positive.?Miscellaneous:?Caffeine: yes, frequency:, 2-3 cups per day. Children: yes. Exercise: yes, walks 2 miles QD. Home smoke detector use: yes. Housing: owning. Living with: spouse. Marital status: . Occupation: weeks/months/years, works full-time. Pets: none. Travel outside of the [place]: no. * Medications:?TakingTadalafil 20 MG Tablet TAKE ONE TABLET BY MOUTH ONCE DAILY Valsartan-hydroCHLOROthiazide 320-12.5 MG Tablet TAKE 1 TABLET BY MOUTH EVERY DAY amLODIPine Besylate 5 MG Tablet TAKE 1 TABLET BY MOUTH EVERY DAY Atorvastatin Calcium 40 MG Tablet TAKE 1 TABLET BY MOUTH EVERY DAY Taking Tadalafil 20 MG Tablet TAKE ONE TABLET BY MOUTH ONCE DAILY Taking Valsartan-hydroCHLOROthiazide 320-12.5 MG Tablet TAKE 1 TABLET BY MOUTH EVERY DAY Taking amLODIPine Besylate 5 MG Tablet TAKE 1 TABLET BY MOUTH EVERY DAY Taking Atorvastatin Calcium 40 MG Tablet TAKE 1 TABLET BY MOUTH EVERY DAY Not-Taking/PRNMeloxicam 15 MG Tablet 1 tablet Orally Once a day Betamethasone Dipropionate Aug 0.05 % Cream APPLY EVERY DAY DIRECTED Externally Once a day Medication List reviewed and reconciled with the patientNot- Taking/PRN Meloxicam 15 MG Tablet 1 tablet Orally Once a day Not-Taking/PRN Betamethasone Dipropionate Aug 0.05 % Cream APPLY EVERY DAY DIRECTED Externally Once a day Medication List reviewed and reconciled with the patient * Allergies:?penicillin: rashl isinopril: coughyes[Allergies Verified] Objective: * Vitals:?Ht: 70, Wt: 220, BMI :31.56, BP:132/76, Wt-k.79. weight is down 13 pounds since 10-12-23. * ???Past Orders: ???Lab:Lipid Panel (Order Da te 04/05/2024) (Collection Date & Time - 04/05/2024 07:45 AM) ? Value Reference Range ?Triglycerides 186 H <150 - mg/dL ?Cholesterol 132 <200 - m g/dL ?LDL Cholesterol Calculated 63 <100 - mg/dL ?HDL Cholesterol 32 L >40 - mg/dL ???Lab:PSA,Total (Free>4and< 10) (Order Date - 04/05/2024) (Collection Date & Time - 04/05/2024 07:45 AM) ? Value Reference Range ?PSA,Total (Free>4and<10) 2.88 0.00-4.00 - ng/mL ???Lab:Microalbumin, Random (Order 04/05/2024) (Collection & Time - 04/05/2024 07:45 AM) ? Value Reference Range ?Creatinine Urine 315.12 - m g/dL ?Microalbumin Urine 120.0 - mg/L ?Microalbum Creatinin e Ratio Ur 38.0 H <30 - ug/mg cr ???Lab:Complete Blood Count Auto Diff (Order 04/05/2024) (Collection Date & Time - 04/05/2024 07:45 AM) ? Value Reference Range ?White Blood Count 5.7 4. 8-10.8 - X10*3/uL ?Red Blood Count 4.89 4.60 -5.80 - X10*6/uL ?Hemoglobin 14.9 14.0-18.0 - g/dl ?Hematocrit 44.6 42.0-52.0 - % ?Mean Corpuscular Volume 91.2 80.0-98.0 - fL ?Mean Corpuscular Hemoglobin 30.5 27.0-33.0 - pg ?Mean Corpuscular HGB Conc 33.4 31.0-36.0 - g/dl ?Red Cell Distribution Width 12.9 11.0-16.0 - % ?Platelet Count 255 160-4 00 - X10*3/uL ?Mean Platelet Volume 10.9 9.4-12.4 - fL ?Neutrophils Percent Auto 62.5 45-73 - % ?Imm Gran Pct Auto 0.3 0. 0-0.4 - % ?Lymphocytes Percent Auto 22.6 20-40 - % ?Monocytes Percent Auto 8.5 2-11 - % ?Eosinophils Percent Auto 5.6 H 0-4 - % ?Basophils Percent Auto 0.5 0-2 - % ?NRBC Pct Auto 0.0 0.0-0. 2 - /100WBC ?Neutrophils Absolute Auto 3.6 2.0-8.3 - x10*3/uL ?Imm Gran Abs Auto 0.02 0. 00-0.03 - X10*3/uL ?Lymphocytes Absolute Auto 1.3 1.2-4.9 - X10*3/uL ?Monocytes Absolute Auto 0.5 0.1-1.2 - X10*3/uL ?Eosinophils Absolute Auto 0.3 0.0-0.4 - X10*3/uL ?Basophils Absolute Auto 0.0 0.0-0.2 - X10*3/uL ?NRBC Abs Auto 0.000 0.0-0. 012 - X10*3/uL ???Lab: ClnCatch+Micro w/r flx Cult (Order Date - 04/05/2024) (Collection Date & Time - 04/05/2024 07:45 AM) ? Value Reference Range ?Color Urine Dark Yellow - ?Appearance Urine Clear - ?PH 5.5 5.0-9.0 - ?Glucose Urine UA Negative Neg ative - mg/dL ?Urine Blood Negative Negative - ?Specific [place] - Urine 1.025 1.005-1.025 - ?Urine Protein 30 (1+) A Neg-Tr ghassan - mg/dL ?Urine Ketones Negative Negati ve - mg/dL ?Nitrite Urine Negative Negati ve - ?Leukocyte Esterase Urine Negative Negative - ?RBC Urine 0-2 0-2 - /HPF ?WBC Urine 0-5 0-5 - /HPF ?Squamous Epithelial Cell Urine 0-2 0-2 - /HPF ?Bacteria Urine None Seen None Seen - ?Hyaline Casts Urine >20 0-2 - /LPF ?Granular Casts Urine Present - ???Lab:Comprehensive [place]. P antoni Fast (Order Date - 04/05/2024) (Collection Date & Time - 04/05/2024 07:45 AM) ? Value Reference Range ?Sodium 141 135-145 - mmo l/L ?Bilirubin Total 0.7 0.0- 1.0 - mg/dL ?Aspartate Amino Transferase 32 5-37 - U/L ?Alanine Aminotransferase 36 0-40 - U/L ?Total Protein 7.6 6.5-8. 0 - g/dL ?Albumin Level 3.9 3.5-5. 0 - g/dL ?Alkaline Phosphatase 58 39-117 - U/L ?Potassium 3.8 3.3-5.1 - mmol/L ?Chloride 106 96-108 - mm ol/L ?Carbon Dioxide 28 22-29 - mmol/L ?Anion Gap 11 L 12-20 - ?Blood Urea Nitrogen 14 9-16 - mg/dL ?Creatinine 0.84 0.5-1.4 - mg/dL ?Estimated Glomerular Filt Rate > 60 - ?Glucose Fasting 100 H 60-9 9 - mg/dL ?Calcium 8.8 8.4-10.2 - m g/dL * Examination: ???General Examination: ?GENERAL APPEARANCE:?well developed, well nourished, in no acute distress.?HEAD:?normocephalic, atraumatic.?EYES:?pupils equal, round, reactive to light and accommodation, sclera non-icteric.?EARS:?normal.?ORAL CAVITY:?mucosa moist.?THROAT:?clear.?NECK/THYROID:?neck supple, full range of motion, no cervical lymphadenopathy, no bruits.?SKIN:?warm and dry, no suspicious lesions.?HEART:?regular rate and rhythm, S1, S2 normal, no murmurs.?LUNGS:?clear to auscultation bilaterally.?ABDOMEN:?soft, nontender, nondistended, bowel sounds present, normal, no organomegaly , no masses palpable.?RECTAL EXAM:?normal tone, no external hemorrhoids, no masses palpable, prostate normal, stool guaiac , abnormal positive.?MALE GENITOURINARY:?uncircumcised, no testicular mass can't palpate the left testicle.?EXTREMITIES:?no clubbing, cyanosis, or edema.?NEUROLOGIC:?nonfocal, motor strength normal upper and lower extremities, sensory exam intact.? Assessment: * Assessment: 1.?Annual physical exam - Z0 0.00 (Primary)???2.?Stool guaiac positive - R19.5???3.?Essential hypertension - I10???4.?Prediabetes - R73.09???5.?Pure hypercholesterolemia - E78.00???6.?Prostatism - N40.0???7.?Depression screening - Z13.31???8.?Screening for colon cancer - Z12.11??? Plan: * Treatment: 2.?Stool guaiac positive? Notes: referral to dr ellis? Referral To:Kenia Ellis??Gastroenterology ?Reason:stool guaiac positive needs an colonoscopy 3.?Essential hypertension? Continue Valsartan-hydroCHLOROthiazide Tablet, 320-12.5 MG, TAKE 1 TABLET BY MOUTH EVERY DAY;?Continue amLODIPine Besylate Tablet, 5 MG, TAKE 1 TABLET BY MOUTH EVERY DAY.?? Notes: doing well, will contionue current regiment?? 4.?Prediabetes? Notes: doing well with weight loss, no need for medication at this time?? 5.?Pure hypercholesterolemia ? Continue Atorvastatin Calcium Tablet, 40 MG, TAKE 1 TABLET BY MOUTH EVERY DAY.?? Notes: stable, will continue current regiment?? 6.?Prostatism? Notes: slight increase , will continue to monitor?? 7.?Depression screening? Notes: negative screen?? 8.?Screening for colon cance r?LAB: Occult Blood, Stool, Guaiac (Collection Date & Time - 04/12/2024)?Positive ? Value Reference Range ?Occult Blood, Stool, Guaiac Pos Notes: guaiac positive, referral to GI?? * Procedure Codes:?62150 TEST FOR BLOOD, FECES * Follow Up:?6 Months * * Sign off status: Completed true * Provider:?Israel Spencer MD Date:?0 04/12/2024 Generated for Benny pretty/Blayne/Tiffaniesmnelly on:?08/02/2024 09:09 AM EDT History and Physical Notes * HPI (History of Present Illness) Category Sub-Category Detail Notes Category Not es Symptom(s) patient is a 74 yo male here for annual visit with review of recent labs and follow up of chronic issues. Depression Screening PHQ-9 Little inte rest or pleasure in doing things: Not at all Feeling down, depressed, or hopeless: No t at all Trouble falling or staying asleep, or sl eeping too much: Not at all Feeling tired or having little energy: N ot at all Poor appetite or overeating: Not at all Feeling bad about yourself o r that you are a failure, or have let yourself or your family down: Not at all Trouble concentrating on thi ngs, such as reading the newspaper or watching television: Not at all Moving or speaking so slowly that other people could have noticed; or the opposite, being so fidgety or restless that you have been moving around a lot more than usual: Not at all Thoughts that you would be b donald off or of hurting yourself in some way: Not at all Total Score: 0 Interpretation and Intervention Depression Maira pederson Findings: Negative Follow-Up for Depression: : review of PH Q-9 found negative result, no follow-up needed SDOH Questions SDOH Questions In the past year have you been worried about losing housing?: No In the past year have you or any family members you live with been unable to get any of the following when it was really needed? Check all that apply:: None Fall Risk History Have you had any falls with injury in the past year?: Yes while out for a wlak tripped and landed on right elbow, went to Urgent Care no fracture Have you had two or more falls in the year?: No Communication Needs Communication Needs Does the patient have a hearing impairment: No Does the patient have a vision impairmen t?: Yes ?If yes, what is the vision impairment?: Glasses Does the patient have a cognition impair ment?: No Examination Category Sub-Category Detail Notes Category Not es General Examination GENERAL APPEARANCE: well dev eloped, well nourished, in no acute distress HEAD: normocephalic, atrau matic EYES: pupils equal, round, reactive to light and accommodation, sclera non- icteric EARS: normal THROAT: clear NECK/THYROID: neck supple, full ra nge of motion, no cervical lymphadenopathy, no bruits HEART: regular rate and rhy thm, S1, S2 normal, no murmurs LUNGS: clear to auscultatio n bilaterally ABDOMEN: soft, nontender, non distended, bowel sounds present, normal, no organomegaly , no masses palpable NEUROLOGIC: nonfocal, motor stre ngth normal upper and lower extremities, sensory exam intact SKIN: warm and dry, no olivia picious lesions EXTREMITIES: no clubbing, cyanosi s, or edema MALE GENITOURINARY: uncircumcised, no te sticular mass can't palpate the left testicle RECTAL EXAM: normal tone, no exte rnal hemorrhoids, no masses palpable, prostate normal, stool guaiac , abnormal positive ORAL CAVITY: mucosa moist Consultation Request Notes Referral Date Referring Provider Referred Provider Not es 04/12/2024 Israel Spencer Bushra stool guaia c positive needs an colonoscopy
--- OUTSIDE RECORDS SUMMARY | 2024-08-02 09:09 | XMS_ITS ---
Author Organization Israel Spencer MD Address [address] [place] [phone] Care Team Providers Care Septic Technician Name Role Phone Israel Spencer Primary Care Provider REASON FOR VISIT HDF Immunizations Vaccine Route Administration Date Status Comme nts Influenza High Dose IM Intramuscular 11/30/2023 Administer ed Encounters Encounter Location Date Provider Diagnosis Israel Spencer MD [address] [place] [phone] 11/30/2023 Israel Spencer Encounter for immunization Z23 Assessments Encounter Date Diagnosis (ICD Code) Assessment Notes Treatment Notes Treatment Clinical Notes Section Notes 11/30/2023 Encounter for immunization (ICD-10 - Z23) Plan Of Treatment Next Appt Details Provider Name:Israel quezada, 10/04/2024 07:30:00 AM, [address], [address] [place] [address] [place], [phone], Provider Name:Israel Lance ier, 10/11/2024 09:00:00 AM, [address] [facility], [address], [place], [phone], Provider Name:Israel Lance ier, 04/10/2025 08:00:00 AM, [facility], [address], [place], [place], [phone], Provider Name:Israel Lance ier, 04/17/2025 08:30:00 AM, [facility], [address], [place], [place], [phone], Progress Notes * Jarocho TRAN PDOB:1950 (74 yo M)Acc No.[id number]:11/30/2023 Progress Note Patient:?Jarocho TRAN Provider:?Israel Spencer MD :1950???Age:73 Y???Sex:Male Ko e:11/30/2023 Address:[address] [place] [address] Subjective: * Chief Complaints: * ???1. HDF. * Medical History:? Objective: * Vitals:? Assessment: * Assessment: 1.?Encounter for immunizatio n - Z23 (Primary)??? Plan: * Treatment: * Immunizations:? Influenza High Dose : 0.5 mL (Dose No:1) (Route: Intramuscular) given by Majo Fortune , Office Staff on Left Deltoid * Procedure Codes:?02238 FLU V ACC PRSV FREE INC ANTIG, G0008 ADMN FLU VAC NO FEE SCHED SAME DAY * * The named appointment provid er may or may not be the originator of this progress note, and it is not deemed complete until electronically signed by the appointment provider. Sign off status: Pending * Provider:?Israel Spencer MD Date:?0 11/30/2023 Generated for Benny pretty/Blayne/eTекатеринаsmitting on:?08/02/2024 09:09 AM EDT
--- OUTSIDE RECORDS SUMMARY | 2024-08-02 09:09 | XMS_ITS ---
Author Organization Israel Spencer MD Address [address] [place] [phone] Care Team Providers Care Head Of Human Resources Name Role Phone Israel Spencer Primary Care Provider Results Component Value Reference Range Notes Complete Blood Count Auto Di ff Reviewed date:04/05/2024 12:33:38 PM Interpretation: Performing Lab:[facility], [address] [place] [phone] Notes/Report: White Blood Count 5.7 4.8-10.8 X10*3/uL [...] NRBC Abs Auto 0.000 0.0-0.012 X10*3/uL Comprehensive Davis. Panel Fa st Reviewed date:04/05/2024 12:33:22 PM Interpretation: Performing Lab:[facility], [address] [place] [phone] Notes/Report: Sodium 141 135-145 mmol/L Potassium 3.8 [...] Panel Reviewed date:04/05/2024 12:16:28 PM Interpretation: Performing Lab:[address] [phone] Notes/Report: Triglycerides 186 <150 mg/dL Desirable Triglyceride: [...] (Free>4and<10) Reviewed date:04/05/2024 12:24:29 PM Interpretation: Performing Lab:[address] [phone] Notes/Report: PSA,Total (Free>4and<10) 2.88 0.00-4.00 ng/mL A [...] Random Reviewed date:04/05/2024 12:29:37 PM Interpretation: Performing Lab:[facility], [address] [place] [phone] Notes/Report: Creatinine Urine 315.12 Microalbumin Urine 120.0 Microalbum/Creatinine Ratio Ur 38.0 <30 ug/mg cr Albumin/Creatinine Ratio Reference Ranges: Normal: < 30 ug/mg creatinine Microalbuminuria: 30 - 300 ug/mg creatinine Clinical Albuminuria: > 300 ug/mg creatinine Hemoglobin A1c Reviewed date:04/05/2024 12:24:46 PM Interpretation: Performing Lab:[facility], [address] [place] [phone] Notes/Report: Hemoglobin A1c % 5.5 <6.0 % [...] average glucose, using the formula of the C8D-Sfrohdv Average Glucose study (ADAG), Diabetes Care, Vol.31,#8, 2007 UA ClnCatch+Micro w/rflx Cul t Reviewed date:04/05/2024 12:33:59 PM Interpretation: Performing Lab:[facility], [address] [place] [phone] Notes/Report: [id number] Urine, Clean Catch Color Urine Dark Yellow Appearance Urine Clear PH 5.5 5.0-9.0 Glucose Urine UA Negative Negative mg/dL Urine Blood Negative Negative Specific [place] - Urine 1.025 1.005-1.025 Urine Protein 30 [...] Location Date Provider Diagnosis Israel Spencer MD [address] [place] [address] [place] [phone] 04/05/2024 Israel Spencer Blood tests for rout [...] Details Provider Name:Israel quezada, 10/04/2024 07:30:00 AM, [address] [place] [address], [address] [place] [address], [phone], Provider Name:Israel quezada, 10/11/2024 09:00:00 AM, [address] [place] [address], [address] [place] [address], [phone], Provider Name:Israel quezada, 04/10/2025 08:00:00 AM, [address] [place] [address], [address], [phone], Provider Name:Israel quezada, 04/17/2025 08:30:00 AM, [address] [place] [address], [address], [phone], Progress Notes * MARCJarocho PHELPS PDOB:1950 (74 yo M)Acc No.[id number]:04/05/2024 Progress Note Patient:?Jarocho TRAN Vikki Provider:?Israel Spencer MD :1950???Age:74 Y???Sex:Male Ko e:04/05/2024 Address:[address] [place], [place] [phone] Subjective: * Chief Complaints: * ???1. Yearly fasting labs. * Medical History:? Objective: * Vitals:? Assessment: * Assessment: 1.?Blood tests for routine g eneral physical examination - Z00.00 (Primary)???2.?Prediabetes - R73.09???3.?Essential hypertension - I10???4.?Pure hypercholesterolemia - E78.00???5.?Prostatism - N40.0??? Plan: * Treatment: 2.?Prediabetes?LAB: Complete Blood Count Auto Diff (Collection Date & Time - 04/05/2024 07:45 AM) ?LAB: Comprehensive Davis. Panel Fast (Collection Date & Time - 04/05/2024 07:45 AM) ?LAB: Lipid Panel (Collection Date & Time - 04/05/2024 07:45 AM) ?LAB: PSA,Total (Free>4and<10) (Collection Date & Time - 04/05/2024 07:45 AM) ?LAB: Microalbumin, Random (Collection Date & Time - 04/05/2024 07:45 AM) ?LAB: Hemoglobin A1c (Collection Date & Time - 04/05/2024 07:45 AM) ?LAB: UA ClnCatch+Micro w/rflx Cult (Collection Date & Time - 04/05/2024 07:45 AM) 3.?Essential hypertension?LAB: Complete Blood Count Auto Diff (Collection Date & Time - 04/05/2024 07:45 AM) ?LAB: Comprehensive Davis. Panel Fast (Collection Date & Time - 04/05/2024 07:45 AM) ?LAB: Lipid Panel (Collection Date & Time - 04/05/2024 07:45 AM) ?LAB: PSA,Total (Free>4and<10) (Collection Date & Time - 04/05/2024 07:45 AM) ?LAB: Microalbumin, Random (Collection Date & Time - 04/05/2024 07:45 AM) ?LAB: Hemoglobin A1c (Collection Date & Time - 04/05/2024 07:45 AM) ?LAB: UA ClnCatch+Micro w/rflx Cult (Collection Date & Time - 04/05/2024 07:45 AM) 4.?Pure hypercholesterolemia ?LAB: Complete Blood Count Auto Diff (Collection Date & Time - 04/05/2024 07:45 AM) ?LAB: Comprehensive Davis. Panel Fast (Collection Date & Time - 04/05/2024 07:45 AM) ?LAB: Lipid Panel (Collection Date & Time - 04/05/2024 07:45 AM) ?LAB: PSA,Total (Free>4and<10) (Collection Date & Time - 04/05/2024 07:45 AM) ?LAB: Microalbumin, Random (Collection Date & Time - 04/05/2024 07:45 AM) ?LAB: Hemoglobin A1c (Collection Date & Time - 04/05/2024 07:45 AM) ?LAB: UA ClnCatch+Micro w/rflx Cult (Collection Date & Time - 04/05/2024 07:45 AM) 5.?Prostatism?LAB: Complete Blood Count Auto Diff (Collection Date & Time - 04/05/2024 07:45 AM) ?LAB: Comprehensive Davis. Panel Fast (Collection Date & Time - 04/05/2024 07:45 AM) ?LAB: Lipid Panel (Collection Date & Time - 04/05/2024 07:45 AM) ?LAB: PSA,Total (Free>4and<10) (Collection Date & Time - 04/05/2024 07:45 AM) ?LAB: Microalbumin, Random (Collection Date & Time - 04/05/2024 07:45 AM) ?LAB: Hemoglobin A1c (Collection Date & Time - 04/05/2024 07:45 AM) ?LAB: UA ClnCatch+Micro w/rflx Cult (Collection Date & Time - 04/05/2024 07:45 AM) * Procedure Codes:?49594 VENIP UNCT, ROUTINE* * * The named appointment provid er may or may not be the originator of this progress note, and it is not deemed complete until electronically signed by the appointment provider. Sign off status: Pending * Provider:?Israel Spencer MD Date:?0 04/05/2024 Generated for Benny pretty/Blayne/Sharon on:?08/02/2024 09:09 AM EDT
[2024-08-02 09:28] VITALS: BP 146/70; PULSE 64; O2SAT 97; BMI 31.6
== END 2024-08-02 09:53 | disposition home or self-care (01) ==
PROVIDERS: PCP Internal Medicine; Visit Provider Nurse Practitioner Family
DX: R19.5 Other fecal abnormalities (principal); Z12.11 Encounter for screening for malignant neoplasm of colon
CPT/HCPCS: 99203

== ENCOUNTER → 2024-08-02 08:57 | Outpatient (BNVA) | payer MEDICARE, SELFPAY | PROVIDERS: PCP Internal Medicine; Visit Provider Nurse Practitioner Family | DX: Z12.11 Encounter for screening for malignant neoplasm of colon (principal) | CPT/HCPCS: 99202 ==

== ENCOUNTER 2024-10-04 10:01 | Outpatient (REF) | payer MEDICARE, SELFPAY ==
--- OUTSIDE RECORDS SUMMARY | 2024-04-05 03:45 | XMS_ITS ---
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 Name Role Phone Israel Spencer Primary Care Provider Results Component Value Reference Range Notes Complete Blood Count Auto Di ff Reviewed date:04/05/2024 12:33:38 PM Interpretation: Performing Lab:[facility], [address] [place] [phone] Notes/Report: White Blood Count 5.7 4.8-10.8 X10*3/uL Red Blood Count 4.89 4.60-5.80 X10*6/uL Hemoglobin 14.9 14.0-18.0 g/dl Hematocrit 44.6 42.0-52.0 % Mean Corpuscular Volume 91.2 80.0-98.0 fL Mean Corpuscular Hemoglobin 30.5 27.0-33.0 pg Mean Corpuscular HGB Conc 33.4 31.0-36.0 g/dl Red Cell Distribution Width 12.9 11.0-16.0 % Platelet Count 255 160-400 X10*3/uL Mean Platelet Volume 10.9 9.4-12.4 fL Neutrophils Percent Auto 62.5 45-73 % Imm Gran Pct Auto 0.3 0.0-0.4 % Lymphocytes Percent Auto 22.6 20-40 % Monocytes Percent Auto 8.5 2-11 % Eosinophils Percent Auto 5.6 0-4 % Basophils Percent Auto 0.5 0-2 % NRBC Pct Auto 0.0 0.0-0.2 /100WBC Neutrophils Absolute Auto 3.6 2.0-8.3 x10*3/u L Imm Gran Abs Auto 0.02 0.00-0.03 X10*3/uL Lymphocytes Absolute Auto 1.3 1.2-4.9 X10*3/u L Monocytes Absolute Auto 0.5 0.1-1.2 X10*3/uL Eosinophils Absolute Auto 0.3 0.0-0.4 X10*3/u L Basophils Absolute Auto 0.0 0.0-0.2 X10*3/uL NRBC Abs Auto 0.000 0.0-0.012 X10*3/uL Comprehensive [place]. Panel Fa st Reviewed date:04/05/2024 12:33:22 PM Interpretation: Performing Lab:[facility], [address] [place] [phone] Notes/Report: Sodium 141 135-145 mmol/L Potassium 3.8 3.3-5.1 mmol/L Chloride 106 96-108 mmol/L Carbon Dioxide 28 22-29 mmol/L Anion Gap 11 12-20 Blood Urea Nitrogen 14 9-16 mg/dL Creatinine 0.84 0.5-1.4 mg/dL Estimated Glomerular Filt Rate > 60 Chronic Kidney Disease: Estimated GFR < 60 mL/min/1.73m2 Severe Kidney Disease: Estimated GFR < 15 mL/min/1.73m2 Glucose Fasting 100 60-99 mg/dL A fasting glucose from 100-125 mg/dl is considered impaired (pre-diabetes). Calcium 8.8 8.4-10.2 mg/dL Bilirubin Total 0.7 0.0-1.0 mg/dL Aspartate Amino Transferase 32 5-37 U/L Alanine Aminotransferase 36 0-40 U/L Total Protein 7.6 6.5-8.0 g/dL Albumin Level 3.9 3.5-5.0 g/dL Alkaline Phosphatase 58 39-117 U/L Lipid Panel Reviewed date:04/05/2024 12:16:28 PM Interpretation: Performing Lab:[address] [phone] Notes/Report: Triglycerides 186 <150 mg/dL Desirable Triglyceride: less than 150 mg/dL Borderline High Triglyceride 150-199 mg/dL High Triglyceride: 200-499 mg/dL Very High Triglyceride: greater than or equal to 5OO mg/dL Cholesterol 132 <200 mg/dL Desirable Cholesterol: less than 200 mg/dL Borderline High Cholesterol: 200-239 mg/dL High Cholesterol: greater than 239 mg/dL LDL Cholesterol Calculated 63 <100 mg/dL Desirable LDL: less than 100 mg/dL Near Optimal/Above Optimal LDL: 110-129 mg/dL Borderline High LDL: 130-159 mg/dL High LDL: 160-189 mg/dL Very High LDL: greater than or equal to 190 mg/dL HDL Cholesterol 32 >40 mg/dL Desirable HDL: greater than 40 mg/dL Note: This HDL assay may give artificially low results in patients with liver disease. PSA,Total (Free>4and<10) Reviewed date:04/05/2024 12:24:29 PM Interpretation: Performing Lab:[address] [phone] Notes/Report: PSA,Total (Free>4and<10) 2.88 0.00-4.00 ng/mL A Free PSA was not performed: The percentage of Free PSA can be used to enhance the differentiation of prostate cancer from benign prostatic disease in subjects whose PSA levels are between 4.0 and 10.0 ng/mL. For subjects whose PSA levels are below 4.0 or above 10.0 ng/mL, the risk of prostate cancer is determined on the basis of the PSA alone. Therefore the % Free PSA is recommended only for those subjects whose PSA levels are between 4.0 and 10.0 ng/mL. PSA methodology: Pearson Alinity i Chemiluminescent Microparticle Immunoassay (CMIA) Microalbumin, Random Reviewed date:04/05/2024 12:29:37 PM Interpretation: Performing Lab:[facility], [address] [place] [phone] Notes/Report: Creatinine Urine 315.12 Microalbumin Urine 120.0 Microalbum/Creatinine Ratio Ur 38.0 <30 ug/mg cr Albumin/Creatinine Ratio Reference Ranges: Normal: < 30 ug/mg creatinine Microalbuminuria: 30 - 300 ug/mg creatinine Clinical Albuminuria: > 300 ug/mg creatinine Hemoglobin A1c Reviewed date:04/05/2024 12:24:46 PM Interpretation: Performing Lab:[facility], [address] [place] [phone] Notes/Report: Hemoglobin A1c % 5.5 <6.0 % Hemoglobin A1C Reference Range Adults: 4.8 - 6.0 % Non diabetic: < 6.0 % Goal: < 7.0 % Additional Action Suggested: > 8.0 % Note: Hemoglobin A1c results are invalid for patients with abnormal amounts of HbF. Blood transfusions may impact the HbA1c concentration in the patient sample. Estimated Average Glucose 111 eAG = Estimated average glucose which is %A1C expressed as average glucose, using the formula of the [id number] Average Glucose study (ADAG), Diabetes Care, Vol.31,#8, 2007 UA ClnCatch+Micro w/rflx Cul t Reviewed date:04/05/2024 12:33:59 PM Interpretation: Performing Lab:[facility], [address] [place] [phone] Notes/Report: [id number] Urine, Clean Catch Color Urine Dark Yellow Appearance Urine Clear PH 5.5 5.0-9.0 Glucose Urine UA Negative Negative mg/dL Urine Blood Negative Negative Specific [place] - Urine 1.025 1.005-1.025 Urine Protein 30 (1+) Neg-Trace mg/dL Urine Ketones Negative Negative mg/dL Nitrite Urine Negative Negative Leukocyte Esterase Urine Negative Negative RBC Urine 0-2 0-2 /HPF WBC Urine 0-5 0-5 /HPF Squamous Epithelial Cell Urine 0-2 0-2 /HPF Bacteria Urine None Seen None Seen Hyaline Casts Urine >20 0-2 /LPF Granular Casts Urine Present REASON FOR VISIT yearly fasting labs Encounters Encounter Location Date Provider Diagnosis Israel Spencer MD [address] [place] [address] [place] [phone] 04/05/2024 Israel Spencer Blood tests for rout ine general physical examination Z00.00 ; Prediabetes R73.09 ; Essential hypertension I10 ; Pure hypercholesterolemia E78.00 and Prostatism N40.0 Assessments Encounter Date Diagnosis (ICD Code) Assessment Notes Treatment Notes Treatment Clinical Notes Section Notes 04/05/2024 Blood tests for rout ine general physical examination (ICD-10 - Z00.00) 04/05/2024 Prediabetes (ICD-10 - R73.09) 04/05/2024 Essential hypertensi on (ICD-10 - I10) 04/05/2024 Pure hypercholesterolemia (ICD-10 - E78.00) 04/05/2024 Prostatism (ICD-10 - N40.0) Plan Of Treatment Next Appt Details Provider Name:Israel quezada, 11/05/2024 09:00:00 AM, [address] [place] [address], [address] [place] [address], [phone], Provider Name:Israel quezada, 04/10/2025 08:00:00 AM, [address] [place] [address], [address] [place] [address], [phone], Provider Name:Israel quezada, 04/17/2025 08:30:00 AM, [address] [place] [address], [address] [place] [address], [phone], Progress Notes * Jarocho TRAN PDOB:1950 (74 yo M)Acc No.[id number]:04/05/2024 Progress Note Patient: Jarocho MONAHAN Provider: Gricelda Spencer MD :1950 A ge:74 Y S ex:Male Date:04/05/2024 Address:[address] [place], [place] [phone] Subjective: * Chief Complaints: * 1 . Yearly fasting labs. * Medical History: Objective: * Vitals: Assessment: * Assessment: 1. B lood tests for routine general physical examination - Z00.00 (Primary) 2 .?Prediabetes - R73.09 3 . E ssential hypertension - I10 4 .?Pure hypercholesterolemia - E78.00 5 . P rostatism - N40.0 ? Plan: * Treatment: 2. P rediabetes L AB: Complete Blood Count Auto Diff (Collection Date & Time - 04/05/2024 07:45 AM) L AB: Comprehensive [place]. Panel Fast (Collection Date & Time - 04/05/2024 07:45 AM) L AB: Lipid Panel (Collection Date & Time - 04/05/2024 07:45 AM) L AB: PSA,Total (Free>4and<10) (Collection Date & Time - 04/05/2024 07:45 AM) L AB: Microalbumin, Random (Collection Date & Time - 04/05/2024 07:45 AM) L AB: Hemoglobin A1c (Collection Date & Time - 04/05/2024 07:45 AM) L AB: UA ClnCatch+Micro w/rflx Cult (Collection Date & Time - 04/05/2024 07:45 AM) 3. E ssential hypertension L AB: Complete Blood Count Auto Diff (Collection Date & Time - 04/05/2024 07:45 AM) L AB: Comprehensive [place]. Panel Fast (Collection Date & Time - 04/05/2024 07:45 AM) L AB: Lipid Panel (Collection Date & Time - 04/05/2024 07:45 AM) L AB: PSA,Total (Free>4and<10) (Collection Date & Time - 04/05/2024 07:45 AM) L AB: Microalbumin, Random (Collection Date & Time - 04/05/2024 07:45 AM) L AB: Hemoglobin A1c (Collection Date & Time - 04/05/2024 07:45 AM) L AB: UA ClnCatch+Micro w/rflx Cult (Collection Date & Time - 04/05/2024 07:45 AM) 4. P ure hypercholesterolemia L AB: Complete Blood Count Auto Diff (Collection Date & Time - 04/05/2024 07:45 AM) L AB: Comprehensive [place]. Panel Fast (Collection Date & Time - 04/05/2024 07:45 AM) L AB: Lipid Panel (Collection Date & Time - 04/05/2024 07:45 AM) L AB: PSA,Total (Free>4and<10) (Collection Date & Time - 04/05/2024 07:45 AM) L AB: Microalbumin, Random (Collection Date & Time - 04/05/2024 07:45 AM) L AB: Hemoglobin A1c (Collection Date & Time - 04/05/2024 07:45 AM) L AB: UA ClnCatch+Micro w/rflx Cult (Collection Date & Time - 04/05/2024 07:45 AM) 5. P rostatism L AB: Complete Blood Count Auto Diff (Collection Date & Time - 04/05/2024 07:45 AM) L AB: Comprehensive [place]. Panel Fast (Collection Date & Time - 04/05/2024 07:45 AM) L AB: Lipid Panel (Collection Date & Time - 04/05/2024 07:45 AM) L AB: PSA,Total (Free>4and<10) (Collection Date & Time - 04/05/2024 07:45 AM) L AB: Microalbumin, Random (Collection Date & Time - 04/05/2024 07:45 AM) L AB: Hemoglobin A1c (Collection Date & Time - 04/05/2024 07:45 AM) L AB: UA ClnCatch+Micro w/rflx Cult (Collection Date & Time - 04/05/2024 07:45 AM) * Procedure Codes: 3 6415 VENIPUNCT, ROUTINE* * * The named appointment provid er may or may not be the originator of this progress note, and it is not deemed complete until electronically signed by the appointment provider. Sign off status: Pending * Provider: Gricelda Spencer MD Date: 0 04/05/2024 Generated for Benny pretty/Blayne/Tiffaniesmitting on: 0 10/04/2024 10:20 AM EDT
[2024-10-04 10:40] LABS: Hemoglobin A1C 130.4707 umol/L; Total Hemoglobin (HGBA1C) 3688.4851 umol/L
[2024-10-04 11:02] LABS: Alanine Aminotransferase 29 U/L (0-40); Albumin Level 4.2 g/dL (3.5-5.0); Alkaline Phosphatase 52 U/L (39-117); Aspartate Amino Transferase 27 U/L (5-37); Cholesterol 138 mg/dL (<200); HDL Cholesterol 40 mg/dL (>40); Total Protein 7.2 g/dL (6.5-8.0); Triglycerides 161 mg/dL (<150)
[2024-10-04 12:12] LABS: Reflex LDLD? No
== END 2024-10-04 10:02 | disposition home or self-care (01) ==
LOC: HO.LNP 10:01
PROVIDERS: Visit Provider Internal Medicine
DX: R73.09 Other abnormal glucose (principal); E78.00 Pure hypercholesterolemia, unspecified
CPT/HCPCS: 80061; 80076; 82947; 83036

== ENCOUNTER 2024-10-09 09:51 | Day surgery (SDC) | payer MEDICARE, SELFPAY ==
--- OUTSIDE RECORDS SUMMARY | 2024-04-05 03:45 | XMS_ITS ---
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 Panel Fa st Reviewed date:04/05/2024 12:33:22 PM Interpretation: Performing Lab:[facility], [address] [place] [phone] Notes/Report: Sodium 141 135-145 mmol/L Potassium 3.8 [...] Panel Reviewed date:04/05/2024 12:16:28 PM Interpretation: Performing Lab:[address] [phone] Notes/Report: Triglycerides 186 <150 mg/dL Desirable Triglyceride: [...] (Free>4and<10) Reviewed date:04/05/2024 12:24:29 PM Interpretation: Performing Lab:[address] [phone] Notes/Report: PSA,Total (Free>4and<10) 2.88 0.00-4.00 ng/mL A [...] Random Reviewed date:04/05/2024 12:29:37 PM Interpretation: Performing Lab:[facility], [address] [place] [phone] Notes/Report: Creatinine Urine 315.12 Microalbumin Urine 120.0 Microalbum/Creatinine Ratio Ur 38.0 <30 ug/mg cr Albumin/Creatinine Ratio Reference Ranges: Normal: < 30 ug/mg creatinine Microalbuminuria: 30 - 300 ug/mg creatinine Clinical Albuminuria: > 300 ug/mg creatinine Hemoglobin A1c Reviewed date:04/05/2024 12:24:46 PM Interpretation: Performing Lab:[facility], [address] [place] [phone] Notes/Report: Hemoglobin A1c % 5.5 <6.0 % [...] average glucose, using the formula of the [id number] Average Glucose study (ADAG), Diabetes Care, Vol.31,#8, 2007 UA ClnCatch+Micro w/rflx Cul t Reviewed date:04/05/2024 12:33:59 PM Interpretation: Performing Lab:[facility], [address] [place] [phone] Notes/Report: [id number] Urine, Clean Catch Color Urine Dark Yellow Appearance Urine Clear PH 5.5 5.0-9.0 Glucose Urine UA Negative Negative mg/dL Urine Blood Negative Negative Specific [place] - Urine 1.025 1.005-1.025 Urine Protein 30 [...] Location Date Provider Diagnosis Israel Spencer MD [address] [place] [address] [place] [phone] 04/05/2024 Israel Spencer Blood tests for rout [...] Treatment Next Appt Details Provider Name:Israel quezada, 10/04/2024 07:30:00 AM, [address] [place] [address], [address], [phone], Provider Name:Israel quezada, 11/05/2024 09:00:00 AM, [address] [place] [address], [address], [phone], Provider Name:Israel quezada, 04/10/2025 08:00:00 AM, [address] [place] [address], [address], [phone], Provider Name:Israel quezada, 04/17/2025 08:30:00 AM, [address] [place] [address], [address], [phone], Progress Notes * Jarocho TRAN PDOB:1950 (74 yo M)Acc No.[id number]:04/05/2024 Progress Note Patient: Jarocho MONAHAN Provider: Gricelda Spencer MD :1950 A ge:74 Y S ex:Male Date:04/05/2024 Address:[address] [place] [address] Subjective: * Chief Complaints: * 1 . [...] - 04/05/2024 07:45 AM) L AB: Comprehensive [place]. Panel Fast (Collection Date & Time - [...] - 04/05/2024 07:45 AM) L AB: Comprehensive [place]. Panel Fast (Collection Date & Time - [...] - 04/05/2024 07:45 AM) L AB: Comprehensive [place]. Panel Fast (Collection Date & Time - [...] - 04/05/2024 07:45 AM) L AB: Comprehensive [place]. Panel Fast (Collection Date & Time - [...] MD Date: 0 04/05/2024 Generated for Benny pretty/Blayne/Taliaitting on: 0 09/18/2024 10:47 AM EDT
--- NOTE | 2024-10-08 10:34 | HO.ANESPROP2 ---
Documented by User: Bertha Vasquez NP 10/08/24 10:35 HPI - Anesthesia Eval Consult details Narrative: 74 yr old male for colonoscopy s/p colonoscopy 2016 [facility] Past Medical History Medical History Hematuria Lumbar disc disorder Prostatism ISAIAH (obstructive sleep apnea) HLD (hyperlipidemia) HTN (hypertension) Erectile dysfunction Surgical History Surgical History History of knee replacement History of hip replacement Hx of cystoscopy Hx of colonoscopy Social History Social History (Updated 08/02/24 @ 09:25 by SITA Rocha) Are you a primary pet care assistant to a significant other at home: No Do you presently have visiting nurse or other home services: No Alcohol intake: current Alcohol intake frequency: 0-2 drinks per day Comment: 2/day Patient Tobacco Use Status: Never used Tobacco Use of substances other than those prescribed or required for medical reasons: No Have you been hit, kicked, punched, or otherwise hurt by someone within the past year? If so, by whom?: No Are you DNR?: No Advance Directives: No Advance Directives Information Provided: Yes Poor oral hygiene: No Meds Allergies Allergy/AdvReac Type Severity Reaction Status Date / Time Penicillins Allergy Unknown Rash Verified 10/09/24 11:02 lisinopril AdvReac Mild Cough Verified 10/09/24 11:02 Home Medications ?Medication ?Instructions ?Recorded ?Confirmed ?Last Taken ?Type amlodipine 5 mg tablet 5 mg PO DAILY 08/02/24 10/09/24 10/09/24 History atorvastatin 40 mg tablet 40 mg PO DAILY 08/02/24 10/09/24 10/09/24 History valsartan 320 1 tab PO DAILY 08/02/24 Unknown History mg-hydrochlorothiazide 12.5 mg tablet Exam Pertinent Lab Results Pertinent Lab Results: Laboratory Tests 04/05/24 07:45 WBC 5.7 RBC 4.89 Hgb 14.9 Hct 44.6 Plt Count 255 Sodium 141 Potassium 3.8 Chloride 106 BUN 14 Creatinine 0.84 Documented by User: Emma Gaston MD 10/09/24 11:34 [facility] Past Medical History Medical History Hematuria Lumbar disc disorder Prostatism ISAIAH (obstructive sleep apnea) HLD (hyperlipidemia) HTN (hypertension) Erectile dysfunction Family History Family history of problems with anesthesia: No Surgical History Surgical History History of knee replacement History of hip replacement Hx of cystoscopy Hx of colonoscopy History of Problems with Anesthesia: No Social History Social History (Updated 08/02/24 @ 09:25 by SITA Rocha) Are you a primary pet care assistant to a significant other at home: No Do you presently have visiting nurse or other home services: No Alcohol intake: current Alcohol intake frequency: 0-2 drinks per day Comment: 2/day Patient Tobacco Use Status: Never used Tobacco Use of substances other than those prescribed or required for medical reasons: No Have you been hit, kicked, punched, or otherwise hurt by someone within the past year? If so, by whom?: No Are you DNR?: No Advance Directives: No Advance Directives Information Provided: Yes Poor oral hygiene: No Meds Allergies Allergy/AdvReac Type Severity Reaction Status Date / Time Penicillins Allergy Unknown Rash Verified 10/09/24 11:02 lisinopril AdvReac Mild Cough Verified 10/09/24 11:02 Home Medications ?Medication ?Instructions ?Recorded ?Confirmed ?Last Taken ?Type amlodipine 5 mg tablet 5 mg PO DAILY 08/02/24 10/09/24 10/09/24 History atorvastatin 40 mg tablet 40 mg PO DAILY 08/02/24 10/09/24 10/09/24 History valsartan 320 1 tab PO DAILY 08/02/24 Unknown History mg-hydrochlorothiazide 12.5 mg tablet Exam Airway Mallampati Class: II TM Dist: >3cm Neck ROM: Full Heart: rrr Lungs: cta Assessment and Plan Assessment Anesthesia Assessment: Anesthesia Plan Discussed and Chart Reviewed Final Anesthetic Review Family History of Problems with Anesthesia: No History of Problems with Anesthesia: No NPO: Yes ASA Class: II Final Preanesthetic Review: No Changes in Pt Med Stat, Meds/Allgs Chart Reviewed and Consent Obtained/Reviewed Patient Risk: Low Procedure Risk: Low Anesthetic Plan Anesthetic Plan: MAC: Disposition: Standard PACU
[2024-10-09 11:09] VITALS: BP 137/86; PULSE 64; RESP 14; TEMP 36.6; O2SAT 98; BMI 29.1
[2024-10-09] MEDS: Lactated Ringers 1,000 ML 100 ML IVCONT (11:19)
--- NOTE | 2024-10-09 12:48 | P.HPSUR_ITS ---
Pre-Procedural Eval Section A - 24 Hr Update-Section A only Date of Service: 10/09/24 Section B - Complete if H&P > 30 days Chief Complaint: screening Relevant Family History (Specify if Yes): No Relevant Social History: None Present Medications: see Short Stay Collaborative assessment Medical History: Significant History (Hematuria Lumbar disc disorder Prostatism ISAIAH (obstructive sleep apnea) HLD (hyperlipidemia) HTN (hypertension) Erectile dysfunction) History of Previous Operations: Relevant previous surgery/procedure and date(s) ( History of knee replacement History of hip replacement Hx of cystoscopy Hx of colonoscopy) Allergies: Allergies Allergy/AdvReac Type Severity Reaction Status Date / Time Penicillins Allergy Unknown Rash Verified 10/09/24 11:02 lisinopril AdvReac Mild Cough Verified 10/09/24 11:02 Review of Systems Sugical H&P ROS: Negative: Constitution, Cardiovascular, Respiratory, Neurological, Psychiatric, Hem-Onc, Allergic/Immunologic, Gastrointestinal, Genitourinary, Musculoskeletal, Integumentary, Endocrine and Eyes/Ears/N ose/Throat Exam Surgical H&P Exam: Normal: HEENT, Normal: Heart, Normal: Lungs, Normal: Extremities, Normal: Abdomen, Normal: Skin and Normal: Neurological Plan Diagnosis/Plan: Unchanged I have reviewed the history and physical and performed a pertinent physical examination on my patient. No changes have occurred unless specified. Time Spent With Patient Time: Total time managing care of this patient today ____ minutes.
--- NOTE | 2024-10-09 13:14 | P.OPN-COLO_ITS ---
Colonoscopy Operative Note Operative Note Date of Service: 10/09/24 Narrative: Operative Information Procedure Description: Colonoscopy Indication: screening Anesthesia: MAC COLONOSCOPY Instrument: Olympus variable stiffness pediatric scope 190L Colonoscopy Monitoring: Vital signs and clinical assessment, continuous EKG monitoring, Pulse oximetry, Carbon Dioxide monitoring and blood pressure monitoring were done throughout the procedure. Colon withdrawal time was 6 minutes. Procedure: The patient was placed in the left lateral decubitis position and pre-procedure medications were administered. After a digital rectal examination of the ano-rectum, the video colonoscope was inserted into the rectum and advanced through the colon to the cecum/TI. The colonoscope was slowly withdrawn in a retrograde panoramic fashion and the colon mucosa was carefully examined including a retroflexed view of the rectum. Findings and interventions are described below. Procedure Difficulty: easy Findings: Terminal Ileum-normal Cecum:normal right sided retroflexion-nml Ascending Colon: normal Transverse Colon -normal Descending Colon:normal Sigmoid Colon: normal Rectum: Retroflexion with small internal hemorrhoids seen, grade I Anorectum - normal Intervention: none Colon preparation: [place] Bowel Preparation Scale Right colon; 1-2 Transverse colon: 2 Left colon; 2 (0 = Unprepared colon segment with mucosa not seen due to solid stool that cannot be cleared. 1 = Portion of mucosa of the colon segment seen, but other areas of the colon segment not well seen due to staining, residual stool and/or opaque liquid. 2 = Minor amount of residual staining, small fragments of stool and/or opaque liquid, but mucosa of colon segment seen well. 3 = Entire mucosa of colon segment seen well with no residual staining, small fragments of stool or opaque liquid) Impression and Post Procedure Diagnosis: internal hemorrhoids Plan: High fiber diet leaflet Avoid straining at stool, epsom salts and sitz bath, anusol supps or cream Repeat Colonoscopy in 5 years due to areas of fair prep on right or earlier if clinically indicated Above findings were reviewed with the patient and relevant handouts were provided if indicated.
[2024-10-09 13:17] VITALS: BP 159/61; PULSE 70; RESP 16; TEMP 36.1; O2SAT 94
[2024-10-09 13:48] VITALS: BP 106/70; PULSE 58; RESP 18; TEMP 36.6; O2SAT 100
== END 2024-10-09 14:04 | disposition home or self-care (01) ==
PROVIDERS: PCP Internal Medicine; Visit Provider Internal Medicine Gastroenterology
PROC: 0DJD8ZZ Inspection of Lower Intestinal Tract, Via Natural or Artificial Opening Endoscopic (ICD-10-PCS; CPT 45378; principal; 2024-10-09 13:10)
DX: Z12.11 Encounter for screening for malignant neoplasm of colon (principal); K64.0 First degree hemorrhoids; I10 Essential (primary) hypertension; E78.5 Hyperlipidemia, unspecified; N52.9 Male erectile dysfunction, unspecified; N40.0 Benign prostatic hyperplasia without lower urinary tract symptoms; R31.9 Hematuria, unspecified; M51.9 Unspecified thoracic, thoracolumbar and lumbosacral intervertebral disc disorder; G47.33 Obstructive sleep apnea (adult) (pediatric); Z79.899 Other long term (current) drug therapy; Z88.0 Allergy status to penicillin; Z88.8 Allergy status to other drugs, medicaments and biological substances; Z98.890 Other specified postprocedural states
CPT/HCPCS: G0121; J2003; J2704

== ENCOUNTER → 2024-10-09 09:51 | Outpatient (BNV) | payer MEDICARE, SELFPAY | PROVIDERS: PCP Internal Medicine; Visit Provider Internal Medicine Gastroenterology | DX: Z12.11 Encounter for screening for malignant neoplasm of colon (principal) | CPT/HCPCS: G0121 ==